=== PATIENT | male | born 1935 | race Caucasian/White ===

== ENCOUNTER 2018-12-18 18:25 | Emergency (ER) | payer BC ==
[2018-12-18 18:29] VITALS: TEMP 97.9; BMI 27.3
--- NOTE | 2018-12-18 18:29 | PDOC ---
Rapid Medical Evaluation Chief Complaint: Blood Pressure Problem Time Seen by Provider: 12/18/18 18:26 Medical Evaluation: Allergies Allergy/AdvReac Type Severity Reaction Status Date / Time ciprofloxacin [From Cipro] Allergy Mild Verified 05/31/18 10:24 ciprofloxacin HCl Allergy Mild Verified 05/31/18 10:24 [From Cipro] Sulfa (Sulfonamide Allergy Mild Swelling Verified 05/31/18 10:24 Antibiotics) [Sulfa(Sulfonamide Antibiotics)] 12/18/18 18:26 I have performed a brief in person evaluation at triage on this patient. CC: HTN HPI: Pt is a 83 YO male who has a hx of HTN and he states that his home RN came and took his BP and she stated it was high. 190/90. Pt's family member states that he does not take his BP med daily. Pt denies symptoms at this time. PE: Skin: clear Lungs: clear Heart: RRR MS: Moves all extremities without difficulty Neuro: Alert and oriented Psych: Appropriate affect Pt will proceed to the main ED for further evaluation. Discharge Disposition - Diagnosis Hypertension Qualifiers: Hypertension type: unspecified Qualified Code(s): I10 - Essential (primary) hypertension - Referrals - Patient Instructions - Post Discharge Activity
[2018-12-18 19:14] LABS: BASO % 0.4 % (0-2.0); EOS % 3.6 % (0-4.5); HEMATOCRIT 42.7 % (35.4-49); HEMOGLOBIN 14.4 GM/dL (11.7-16.9); LYMPH % 20.6 % (8-40); MCH 30.7 pg (25.7-33.7); MCHC 33.8 g/dl (32.0-35.9); MEAN CELL VOLUME 90.8 fl (80-96); MEAN PLT VOLUME 7.8 fl (7.5-11.1); MONO % 7.2 % (3.8-10.2); NEUT % 68.2 % (42.8-82.8); PLATELET COUNT 216 K/MM3 (134-434); RDW 13.5 % (11.9-15.9); WHITE BLOOD COUNT 8.7 K/mm3 (4.0-10.0)
[2018-12-18] MEDS ORDERED: CHLORTHALIDONE 25 MG TABLET PO ONE (19:27)
[2018-12-18] MEDS ORDERED: amLODIPine BESYLATE 5 MG TABLET (FP) PO ONE (19:28)
--- NOTE | 2018-12-18 19:51 | PDOC ---
History of Present Illness - General Chief Complaint: Blood Pressure Problem Stated Complaint: HYPERTENSION Time Seen by Provider: 12/18/18 18:26 History Source: Patient, Family Exam Limitations: No Limitations - History of Present Illness Initial Comments: 12/18/18 19:45 83M with PMH of HTN and "spinal cancer", currently paraplegic from the waist down, who presents to the ED after visiting nurse noted that he had elevated BP. Pt denies any acute complaints including CP, SOB, fever, chills, nausea, vomiting, vision changes. Past History - Past Medical History Allergies/Adverse Reactions: Allergies Allergy/AdvReac Type Severity Reaction Status Date / Time ciprofloxacin [From Cipro] Allergy Mild Verified 12/18/18 18:26 ciprofloxacin HCl Allergy Mild Verified 12/18/18 18:26 [From Cipro] Sulfa (Sulfonamide Allergy Mild Swelling Verified 12/18/18 18:26 Antibiotics) [Sulfa(Sulfonamide Antibiotics)] Home Medications: Ambulatory Orders Glkph-Mygfkll-Ainqminz Tablet 1 tab PO DAILY 10/26/15 Amlodipine Besylate [Norvasc -] 0.5 mg PO DAILY 05/31/18 Aspirin [ASA -] 1 tab PO DAILY 05/31/18 Fluocinonide 0.05% Cream [Lidex 0.05% Cream -] 1 tube TP DAILY 05/31/18 Anemia: No Asthma: No Cancer: No Cardiac Disorders: No CVA: No COPD: No CHF: No Dementia: No Diabetes: No GI Disorders: No Disorders: No HTN: Yes Hypercholesterolemia: No Liver Disease: No Seizures: No Thyroid Disease: No - Surgical History Neurologic Surgery: Yes (spinal tumor removed) Orthopedic Surgery: (parapalegic) - Immunization History Immunization Up to Date: No - Suicide/Smoking/Psychosocial Hx Smoking Status: Yes Smoking History: Never smoked Have you smoked in the past 12 months: No Number of Cigarettes Smoked Daily: 5 If you are a former smoker, when did you quit?: 50 yrs ago Hx Alcohol Use: No Drug/Substance Use Hx: No Substance Use Type: None Hx Substance Use Treatment: No Review of Systems - Review of Systems Able to Perform ROS?: Yes Comments:: 12/18/18 19:50 GENERAL/CONSTITUTIONAL: No fever or chills. No weakness. HEAD, EYES, EARS, NOSE AND THROAT: No change in vision. No ear pain or discharge. No sore throat. CARDIOVASCULAR: No chest pain, palpitations, or lightheadedness. RESPIRATORY: No cough, wheezing, shortness of breath, or hemoptysis. GASTROINTESTINAL: No nausea, vomiting, diarrhea, constipation, or abdominal pain. GENITOURINARY: No dysuria, frequency, hematuria, or change in urination. MUSCULOSKELETAL: No joint or muscle swelling or pain. No neck or back pain. SKIN: + for decubitus ulcer and ulcers on R foot. NEUROLOGIC: No headache, numbness, tingling, focal weakness, loss of consciousness, or change in strength/sensation. Is the patient limited Hebrew proficient: No *Physical Exam - Vital Signs Last Vital Signs Temp Pulse Resp BP Pulse Ox 97.9 F 86 18 191/79 H 98 12/18/18 18:27 12/18/18 18:27 12/18/18 18:27 12/18/18 18:27 12/18/18 18:27 - Physical Exam Comments: 12/18/18 19:50 GENERAL: Well developed, well nourished. Awake and alert. No acute distress. HEENT: Normocephalic, atraumatic. Hearing grossly normal. Moist mucous membranes. PERRLA, EOMI. No conjunctival pallor. Sclera are non-icteric. NECK: Supple. Full ROM. No JVD. CARDIOVASCULAR: Regular rate and rhythm. No murmurs, rubs, or gallops. PULMONARY: No evidence of respiratory distress. Lungs clear to auscultation bilaterally. No wheezing, rales or rhonchi. ABDOMINAL: Soft. Non-tender. Protuberant. No rebound or guarding. MUSCULOSKELETAL: Normal range of motion at all joints. No bony deformities or tenderness. EXTREMITIES: No cyanosis. No clubbing. No edema. No calf tenderness or swelling. SKIN: 2 ulcers on R foot. Large decubitus ulcer stage 2. Otherwise, warm and dry. Normal capillary refill. No rashes. No jaundice. NEUROLOGICAL: Alert, awake, appropriate. Cranial nerves 2-12 grossly intact. Normal speech. Wheelchair bound. PSYCHIATRIC: Cooperative. Good eye contact. Appropriate mood and affect. ED Treatment Course - LABORATORY CBC & Chemistry Diagram: 12/18/18 18:38 12/18/18 18:38 - ADDITIONAL ORDERS Additional order review: 12/18/18 18:38 RBC 4.70 MCV 90.8 MCHC 33.8 RDW 13.5 MPV 7.8 Neutrophils % 68.2 D Lymphocytes % 20.6 D Monocytes % 7.2 D Eosinophils % 3.6 D Basophils % 0.4 Medical Decision Making - Medical Decision Making 12/18/18 19:51 83M with a PMH of HTN sent by visiting nurse for elevated BP. He only took 5 mg (supposed to take 10mg) and did not take his 25mg chlorthalidone. Will give meds and monitor. 12/18/18 20:28 Labs WNL. Repeat BP is 155/76. Pt did not receive chlorthalidone. Will cancel chlorthalidone because pt's BP has corrected. *DC/Admit/Observation/Transfer Diagnosis at time of Disposition: Hypertension Qualifiers: Hypertension type: unspecified Qualified Code(s): I10 - Essential (primary) hypertension - Discharge Dispostion Condition at time of disposition: Good Decision to Admit order: No - Referrals Referrals: Dalton Landon MD [Primary Care Provider] - - Patient Instructions Printed Discharge Instructions: DI for High Blood Pressure Additional Instructions: Your ER visit is not complete until your follow up with your primary care physician. Please follow up with your primary care physician in 1-2 days. Please return to the ER if you have any signs or symptoms of chest pain, shortness of breath, uncontrollable fever, chills, nausea, vomiting, numbness, tingling, or weakness in any part of your body, changes in vision, or slurred speech. Please take your medications as prescribed. Please return to the ER if symptoms persist, worsen, or new symptoms arise. - Post Discharge Activity
[2018-12-18 19:55] LABS: ALBUMIN 3.8 g/dl (3.4-5.0); ALK PHOS 110 U/L (45-117); ANION GAP 7 MMOL/L (8-16); BILIRUBIN,TOTAL 0.4 mg/dL (0.2-1); BLOOD UREA NITROGEN 18 mg/dL (7-18); CALCIUM 9.5 mg/dL (8.5-10.1); CHLORIDE 105 mmol/L (98-107); CO2 30 mmol/L (21-32); CREATININE 0.9 mg/dL (0.55-1.3); GLUCOSE,RANDOM 85 mg/dL (74-106); SGOT/AST 25 U/L (15-37); SGPT/ALT 21 U/L (13-61); SODIUM 141 mmol/L (136-145); TOT PROT 7.9 g/dl (6.4-8.2)
[2018-12-18] MEDS ORDERED: amLODIPine BESYLATE 5 MG TABLET (FP) ONE (20:03)
[2018-12-18 20:29] VITALS: BP 155/76; PULSE 88
--- NOTE | 2018-12-18 20:49 | PDOC ---
Documentation entered by Milagros Bright SCRIBE, acting as scribe for Yolanda Layne DO. Yolanda Layne DO: This documentation has been prepared by the Deangelo gongora Daisy, SCRIBE, under my direction and personally reviewed by me in its entirety. I confirm that the documentation accurately reflects all work , treatment, procedures, and medical decision making performed by me. 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 Patient is currently asymptomatic here in the ER. Allergies: cipro, sulfa Social Hx: Denies toxic habits Surgeries: None reported. PCP: Dr. Landon - Physicial Exam PE: 12/18/18 20:25 Agree with resident's exam - Medical Decision Making 12/18/18 20:47 83-year-old male sent in for evaluation after blood pressure was found to be high at home on routine check Patient admits to taking his medications and correctly Blood pressure decreased in the emergency department after amlodipine Patient remains asymptomatic Labs were not concerning Plan for DC home, family is at the bedside I will provide transportation 12/18/18 20:48
--- NOTE | 2018-12-19 10:32 | EKG ---
Test Reason : Blood Pressure : / mmHG Vent. Rate : 089 BPM Atrial Rate : 089 BPM P-R Int : 158 ms QRS Dur : 074 ms QT Int : 374 ms P-R-T Axes : 009 056 038 degrees QTc Int : 455 ms POOR DATA QUALITY, INTERPRETATION MAY BE ADVERSELY AFFECTED NORMAL SINUS RHYTHM NORMAL ECG WHEN COMPARED WITH ECG OF 20-OCT-2012 04:01, PREMATURE SUPRAVENTRICULAR COMPLEXES ARE NO LONGER PRESENT Confirmed by NANCY ALCALA, RILEY ([id number]) on 12/19/2018 10:32:43 AM Referred By: Confirmed By:RILEY CRUZ MD
== END 2018-12-18 20:56 | disposition home or self-care (01) ==
LOC: JER 18:25
DX: I10 Essential (primary) hypertension (principal); G82.20 Paraplegia, unspecified; Z85.830 Personal history of malignant neoplasm of bone
CPT/HCPCS: 36415; 80053; 84484; 85025; 93005; 93010; 99284-25

== ENCOUNTER 2019-01-03 17:22 | Inpatient (IN) | payer BC ==
--- NOTE | 2019-01-03 17:49 | PDOC ---
Rapid Medical Evaluation Medical Evaluation: Allergies Allergy/AdvReac Type Severity Reaction Status Date / Time ciprofloxacin [From Cipro] Allergy Mild Verified 12/18/18 18:26 ciprofloxacin HCl Allergy Mild Verified 12/18/18 18:26 [From Cipro] Sulfa (Sulfonamide Allergy Mild Swelling Verified 12/18/18 18:26 Antibiotics) [Sulfa(Sulfonamide Antibiotics)] I have performed a brief in-person evaluation of this patient. 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 01/03/19 17:49 Discharge Disposition - Discharge Dispostion Condition at time of disposition: Stable - Referrals - Patient Instructions - Post Discharge Activity
[2019-01-03] MEDS ORDERED: ACETAMINOPHEN 325 MG TABLET (FP) PO ONE (17:56)
[2019-01-03] MEDS ORDERED: ACETAMINOPHEN 325 MG TABLET (FP) ONE (18:29)
[2019-01-03] MEDS ORDERED: IBUPROFEN 600 MG TABLET (FP) PO ONE ×2 (18:31→18:33)
[2019-01-03 18:38] LABS: BASO % 0.2 % (0-2.0); HEMATOCRIT 38.1 % (35.4-49); HEMOGLOBIN 12.5 GM/dL (11.7-16.9); LYMPH % 6.2 % (8-40); MCH 29.6 pg (25.7-33.7); MCHC 32.8 g/dl (32.0-35.9); MEAN CELL VOLUME 90.3 fl (80-96); MEAN PLT VOLUME 8.8 fl (7.5-11.1); NEUT % 90.6 % (42.8-82.8); PLATELET COUNT 230 K/MM3 (134-434); RBC 4.21 M/mm3 (4.00-5.60); RDW 13.5 % (11.9-15.9); WHITE BLOOD COUNT 21.1 K/mm3 (4.0-10.0)
[2019-01-03 19:21] LABS: ALBUMIN 2.6 g/dl (3.4-5.0); BILIRUBIN,TOTAL 0.8 mg/dL (0.2-1); CALCIUM 8.9 mg/dL (8.5-10.1); CREATININE 1.6 mg/dL (0.55-1.3); POTASSIUM 3.4 mmol/L (3.5-5.1); TOT PROT 6.8 g/dl (6.4-8.2)
--- NOTE | 2019-01-03 19:28 | PDOC ---
History of Present Illness - General Chief Complaint: Tremors Stated Complaint: UTI Time Seen by Provider: 01/03/19 17:50 History Source: Patient Exam Limitations: No Limitations - History of Present Illness Initial Comments: 01/03/19 20:02 83 year old male with PMH HTN, spinal cancer, paraplegia, wheelchair bound, trauma to bilateral femurs, urinary incontinence (self caths) presented to ED for left testicular swelling associated with fever and chills x3 days. Pt was seen by his PCP Monday, testing was performed, but patient was not prescribed any medication. Pt called his doctor today and was told to go to the ED if symptoms were worsening. Pt denied nausea, vomiting, abdominal pain. Allergies: Cipro, Sulfa Past History - Past Medical History Allergies/Adverse Reactions: Allergies Allergy/AdvReac Type Severity Reaction Status Date / Time ciprofloxacin [From Cipro] Allergy Mild Verified 01/03/19 20:16 ciprofloxacin HCl Allergy Mild Verified 01/03/19 20:16 [From Cipro] Sulfa (Sulfonamide Allergy Mild Swelling Verified 01/03/19 20:16 Antibiotics) [Sulfa(Sulfonamide Antibiotics)] Home Medications: Ambulatory Orders Thgto-Nqcwvuj-Qqltyqqg Tablet 1 tab PO DAILY 10/26/15 Amlodipine Besylate [Norvasc -] 10 mg PO DAILY 05/31/18 Aspirin [ASA -] 1 tab PO DAILY 05/31/18 Fluocinonide 0.05% Cream [Lidex 0.05% Cream -] 1 tube TP DAILY 05/31/18 Chlorthalidone 25 mg PO DAILY 12/18/18 Anemia: No Asthma: No Cancer: No Cardiac Disorders: No CVA: No COPD: No CHF: No Dementia: No Diabetes: No GI Disorders: No Disorders: No HTN: Yes Hypercholesterolemia: No Liver Disease: No Seizures: No Thyroid Disease: No - Surgical History Neurologic Surgery: Yes (spinal tumor removed) Orthopedic Surgery: (parapalegic) - Immunization History Immunization Up to Date: No - Suicide/Smoking/Psychosocial Hx Smoking Status: Yes Smoking History: Never smoked Have you smoked in the past 12 months: No Number of Cigarettes Smoked Daily: 5 If you are a former smoker, when did you quit?: 50 yrs ago Information on smoking cessation initiated: No Hx Alcohol Use: No Drug/Substance Use Hx: No Substance Use Type: None Hx Substance Use Treatment: No Review of Systems - Review of Systems Able to Perform ROS?: Yes Comments:: 01/03/19 20:03 General: admitted to fever, chills, generalized weakness. HEENT: denied sore throat, rhinorrhea, ear pain. Heart: denied chest pain, palpitations, syncope, diaphoresis. Respiratory: denied shortness of breath, cough, sputum production, hemoptysis. Abdomen: denied abdominal pain, nausea, vomiting, diarrhea, constipation, blood in stool. : admitted to testicular swelling. denied dysuria, increased urinary frequency , hematuria, urinary incontinence, flank pain. Back: denied back pain. Musculoskeletal: denied joint pain, muscle pain, joint swelling. Neurological: denied headache, dizziness, numbness, tingling, weakness. Skin: denied rash, laceration, abrasion. *Physical Exam - Vital Signs Last Vital Signs Temp Pulse Resp BP Pulse Ox 101.0 F H 104 H 16 141/60 96 01/03/19 17:52 01/03/19 17:52 01/03/19 17:52 01/03/19 17:52 01/03/19 17:52 - Physical Exam Comments: 01/03/19 20:04 Constitutional: Well-nourished, Well-developed, appearing stated age. HEENT: head is normocephalic, atraumatic. EOMI. PERRLA. Neck: supple. Full ROM. Heart: regular rhythm. no murmurs, rubs or gallops. Lungs: clear to auscultation bilaterally. no crackles, rhonchi or wheezing. no stridor. Abdomen: soft, flat. tenderness to suprapubic area, LLQ, RLQ, worst in the suprapubic area. normal bowel sounds. no rebound, guarding, masses. : scrotal edema. left testicular tenderness. no gangrene. Sacral: skin breakdown with stool contamination. Extremities: peripheral pulses intact. no lower extremity edema. lower extremity wasting bilaterally. Neurological: CN 2-12 grossly intact. moves all four extremities. Psych: awake, alert, oriented x3. follows commands. answers questions appropriately. ED Treatment Course - LABORATORY CBC & Chemistry Diagram: 01/04/19 05:30 01/04/19 05:30 - ADDITIONAL ORDERS Additional order review: Laboratory Results 01/03/19 18:18 Sodium 133 L Potassium 3.4 L Chloride 98 Carbon Dioxide 22 Anion Gap 13 BUN 31 H Creatinine 1.6 H Est GFR (CKD-EPI)AfAm 44.86 Est GFR (CKD-EPI)NonAf 38.71 Random Glucose 127 H Calcium 8.9 Total Bilirubin 0.8 AST 53 H ALT 53 Alkaline Phosphatase 120 H Total Protein 6.8 Albumin 2.6 L 01/03/19 18:18 RBC 4.21 MCV 90.3 MCHC 32.8 RDW 13.5 MPV 8.8 D Neutrophils % 90.6 H Lymphocytes % 6.2 L D Monocytes % 3.0 L Eosinophils % 0.0 D Basophils % 0.2 - Medications Given in the ED: ED Medications Discontinued Medications Generic Name Dose Route Start Last Admin Trade Name Freq PRN Reason Stop Dose Admin Acetaminophen 975 mg 01/03/19 17:56 01/03/19 18:32 Tylenol - PO 01/03/19 17:57 Not Given ONCE ONE Ibuprofen 600 mg 01/03/19 18:31 01/03/19 18:34 Motrin - PO 01/03/19 18:32 600 mg ONCE ONE Administration Medical Decision Making - Medical Decision Making 01/03/19 19:28 83 year old male with above PMH presented to ED for testicular swelling associated with fever/chills. Initial Vital Signs Temp Pulse Resp BP Pulse Ox 101.0 F H 104 H 16 141/60 96 01/03/19 17:52 01/03/19 17:52 01/03/19 17:52 01/03/19 17:52 01/03/19 17:52 Febrile. Tachycardic. No tachypnea. Mild hypertension. No hypoxia on room air. EKG performed at 2125: rate 76, regular rhythm, normal axis, normal intervals, nonspecific ST changes. CBC WBC 21.1 K/mm3 (4.0-10.0) H 01/03/19 18:18 RBC 4.21 M/mm3 (4.00-5.60) 01/03/19 18:18 Hgb 12.5 GM/dL (11.7-16.9) 01/03/19 18:18 Hct 38.1 % (35.4-49) 01/03/19 18:18 MCV 90.3 fl (80-96) 01/03/19 18:18 MCH 29.6 pg (25.7-33.7) 01/03/19 18:18 MCHC 32.8 g/dl (32.0-35.9) 01/03/19 18:18 RDW 13.5 % (11.9-15.9) 01/03/19 18:18 Plt Count 230 K/MM3 (134-434) 01/03/19 18:18 MPV 8.8 fl (7.5-11.1) D 01/03/19 18:18 Absolute Neuts (auto) 19.1 K/mm3 (1.5-8.0) H 01/03/19 18:18 Neutrophils % 90.6 % (42.8-82.8) H 01/03/19 18:18 Lymphocytes % 6.2 % (8-40) L D 01/03/19 18:18 Monocytes % 3.0 % (3.8-10.2) L 01/03/19 18:18 Eosinophils % 0.0 % (0-4.5) D 01/03/19 18:18 Basophils % 0.2 % (0-2.0) 01/03/19 18:18 Nucleated RBC % 0 % (0-0) 01/03/19 18:18 Leukocytosis with left shift. No anemia. CMP Sodium 133 mmol/L (136-145) L 01/03/19 18:18 Potassium 3.4 mmol/L (3.5-5.1) L 01/03/19 18:18 Chloride 98 mmol/L (98-107) 01/03/19 18:18 Carbon Dioxide 22 mmol/L (21-32) 01/03/19 18:18 Anion Gap 13 MMOL/L (8-16) 01/03/19 18:18 BUN 31 mg/dL (7-18) H 01/03/19 18:18 Creatinine 1.6 mg/dL (0.55-1.3) H 01/03/19 18:18 Est GFR (CKD-EPI)AfAm 44.86 01/03/19 18:18 Est GFR (CKD-EPI)NonAf 38.71 01/03/19 18:18 Random Glucose 127 mg/dL (74-106) H 01/03/19 18:18 Calcium 8.9 mg/dL (8.5-10.1) 01/03/19 18:18 Total Bilirubin 0.8 mg/dL (0.2-1) 01/03/19 18:18 AST 53 U/L (15-37) H 01/03/19 18:18 ALT 53 U/L (13-61) 01/03/19 18:18 Alkaline Phosphatase 120 U/L (45-117) H 01/03/19 18:18 Total Protein 6.8 g/dl (6.4-8.2) 01/03/19 18:18 Albumin 2.6 g/dl (3.4-5.0) L 01/03/19 18:18 Mild hyponatremia. Mild hypokalemia. RENNY. Medications ordered: normal saline bolus 1000 cc 01/03/19 21:21 Pt is unable to be catheterized by RN. Urology paged. 01/03/19 21:[address] Lou, who stated he will come to the ED to catheterize the patient. Pending his arrival. 01/03/19 21:36 RN now able to pass bernal. Urology paged. 01/03/19 22:02 Urine Test Results Urine Color Dk yellow 01/03/19 21:30 Urine Appearance Cloudy 01/03/19 21:30 Urine pH 5.0 (5.0-8.0) 01/03/19 21:30 Ur Specific [place] 1.018 (1.010-1.035) 01/03/19 21:30 Urine Protein 1+ (NEGATIVE) H 01/03/19 21:30 Urine Glucose (UA) Negative (NEGATIVE) 01/03/19 21:30 Urine Ketones Negative (NEGATIVE) 01/03/19 21:30 Urine Blood 2+ (NEGATIVE) H 01/03/19 21:30 Urine Nitrite Negative (NEGATIVE) 01/03/19 21:30 Urine Bilirubin Negative (NEGATIVE) 01/03/19 21:30 Ur Leukocyte Esterase 3+ (NEGATIVE) H 01/03/19 21:30 WBC 30+ Pt has UTI. Medications ordered: Vancomycin and Zosyn (renal dosing) -Pt has sacral skin break down with stool contamination -Covering for both UTI and fecal contaminated skin wound Pt to be admitted for UTI with SIRS. 01/03/19 22:19 Pt to be admitted to Dr. Herr service. *DC/Admit/Observation/Transfer Diagnosis at time of Disposition: Urinary tract infection, Scrotal edema, SIRS (systemic inflammatory response syndrome) - Discharge Dispostion Disposition: TRANSFER ACUTE CARE/OTHER HOSP Condition at time of disposition: Stable Decision to Admit order: Yes - Referrals - Patient Instructions - Post Discharge Activity
[2019-01-03] MEDS ORDERED: SODIUM CHLORIDE 1,000 ML IV STA (19:30)
[2019-01-03 20:12] LABS: PLATELET ESTIMATE ADEQUATE
--- NOTE | 2019-01-03 21:08 | PDOC ---
Documentation entered by Milagros Bright SCRIBE, acting as scribe for Demetrius Luis MD. Demetrius Luis MD: This documentation has been prepared by the Deangelo gongora Daisy, SCRIBE, under my direction and personally reviewed by me in its entirety. I confirm that the documentation accurately reflects all work, treatment, procedures, and medical decision making performed by me. Attending Attestation - Resident Resident Name: Sari Craft - ED Attending Attestation I have performed the following: I have examined & evaluated the patient, The case was reviewed & discussed with the resident, I agree w/resident's findings & plan - HPI HPI: 01/03/19 20:29 83 year old male with PMH HTN, spinal cancer, paraplegia who presents to the ED for left testicular swelling and associated fever/ chills for the past 3 days. Patient states he saw his PCP 2 days ago for urinary symptoms and reports that he usually "gets amoxicillin for his UTIs," but was not started on any medications. He decided to come to the ER for further testing. Denies any nausea, vomiting, abdominal pain, cp, or sob. Allergies: ciprofloxacin, sulfa - Physicial Exam PE: 01/04/19 07:25 Scrotum swollen, edemetous, erythematous, skin intact, no drainage No perineal crepitus Stage 3 sacral decub - Medical Decision Making 01/04/19 07:26 83M with above medical hx here with scrotal swelling and px consider cellulitis, clinically inconsistent with norman's on initial exam f/u labs, imaging, repeat vital signs ivf, will cover broadly given risk of progression admit for continued management
[2019-01-03 21:47] LABS: EPI CELLS 5.3 /HPF (0-5/HPF); URINE APPEARANCE CLOUDY; URINE BACTERIA 3.9 /hpf (NEGATIVE); URINE BILIRUBIN NEGATIVE (NEGATIVE); URINE CASTS 24 /lpf (0-8); URINE COLOR DK YELLOW; URINE GLUCOSE (UA) NEGATIVE (NEGATIVE); URINE KETONE NEGATIVE (NEGATIVE); URINE LEUK ESTERASE 3+ (NEGATIVE); URINE NITRITE NEGATIVE (NEGATIVE); URINE PROTEIN 1+ (NEGATIVE); URINE WBC 38 /hpf (0-5)
[2019-01-03] MEDS ORDERED: CEFTRIAXONE 1 GM in DEXTROSE 5%-WATER - 100 ML IVPB ONE (22:18)
[2019-01-03] MEDS ORDERED: CEFTRIAXONE 1 GM/50 ML BAG ONE (22:23)
[2019-01-03] MEDS ORDERED: PIPERACILLIN/TAZOB 4.5 GM 4.5 GM in DEXTROSE 5%-WATER 100 ML IVPB ONE (22:25)
[2019-01-03] MEDS ORDERED: VANCOMYCIN 1,000 MG in DEXTROSE 5%-WATER - 250 ML IVPB ONE (22:25)
[2019-01-03] MEDS ORDERED: PIPERACILLIN/TAZOB 2.25 GM 2.25 GM/50 ML BAG IVPB ONE (22:27)
[2019-01-03] MEDS ORDERED: PIPERACILLIN/TAZOB 2.25 GM 2.25 GM in DEXTROSE 5%-WATER - 50 ML IVPB ONE (22:27)
[2019-01-03 22:46] LABS: URINE RBC 10.2 /hpf (0-4); YEAST NONE SEEN (NEGATIVE)
--- NOTE | 2019-01-03 22:46 | PN ---
Teaching Attending Note Name of Resident: Anastacia Fleming ATTENDING PHYSICIAN STATEMENT I saw and evaluated the patient. I reviewed the resident's note and discussed the case with the resident. I agree with the resident's findings and plan as documented. SUBJECTIVE: Seen and examined; please refer to resident note for further historical information. Briefly, this is a 83 y/o male with a PMH as documented presenting to the ER with a CC of fever and chills for 3 days and 1 day testicular pain and swelling; he is found to have an RENNY, elevated WBC with bands, and a positive UA. He straight caths several times a day. In the ER he was treated presumptively for UTI. 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 Needed subspecialty services were not available so patient was brought to the ICU and planned for transfer to [facility]. He has been accepted by Dr. Pena and we placed a triple lumen CVC in his R-IJ (placement confirmed). Broadened abx, started NE, and giving high- rate fluids as now in septic shock. 10 sys ROS done and negative aside from HPI PMH, PSH, FH, SH reviewed Home Medications Medication Instructions Recorded Ekuod-Lgdvnvl-Spvphckv Tablet 1 tab PO DAILY 10/26/15 Amlodipine Besylate [Norvasc -] 10 mg PO DAILY 05/31/18 Aspirin [ASA -] 1 tab PO DAILY 05/31/18 Fluocinonide 0.05% Cream [Lidex 1 tube TP DAILY 05/31/18 0.05% Cream -] Chlorthalidone 25 mg PO DAILY 12/18/18 OBJECTIVE: VS, labs, imaging reviewed Mild distress, AAO, resting comfortably in WC NC AT EOMI PERRLA Swollen testicles somewhat painful to palpation NT ND +BS RRR s1/2 no mgr CN2-12 wnl, no fnd Normal mood, appropriate affect EKG reviewed CT prelim report with norman's ASSESSMENT AND PLAN: 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 NE to maintain MAP 65. Broad spectrum abx STAT transfer Very guarded prognosis
[2019-01-03] MEDS ORDERED: ACETAMINOPHEN 325 MG TABLET (FP) PO PRN (22:55)
[2019-01-03] MEDS ORDERED: LACTATED RINGERS SOLUTION 1,000 ML IV SCH (23:00)
--- NOTE | 2019-01-03 23:10 | HP ---
CHIEF COMPLAINT: fever, chills, testicular swelling PCP: Dr. Landon HISTORY OF PRESENT ILLNESS: Patient is a 83 y/o male with a history of HTN, spinal tumor, parapelegia, femur fractures, and urinary incontinence who presents for fevers, chills and testicular swelling. He states he went to his PCP a few days ago who did labs but did not find any abnormalities and told him to follow up with the ED. He reports the testicular pain and swelling began yesterday and has been worsening. He has not had this in the past. He typically straight cath's himself four times a day. His last UTI was 3 months ago and typically has them 3 -4 times a year. His PCP prescribes him with Amoxicillin for the UTI. Patient reports he sometimes has bed ulcers as well, is unsure if he has one right now. Patient currently reports his fever is better and the only pain is in his testicles. Denies smoking and drinking. 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 ( used to walk with a cane until b/l femur fracture without surgical fixture and now wheel chair bound) Social History: Smoking: denies Alcohol: denies Drugs: Family History: Allergies ciprofloxacin HCl [From Cipro] Allergy (Mild, Verified 01/03/19 20:16)- rash and itching Sulfa (Sulfonamide Antibiotics) [Sulfa(Sulfonamide Antibiotics)] Allergy (Mild, Verified 01/03/19 20:16) -rash and itching Swelling HOME MEDICATIONS: Home Medications Medication Instructions Recorded Kbary-Npnkzmz-[place] Tablet 1 tab PO DAILY 10/26/15 Amlodipine Besylate [Norvasc -] 0.5 mg PO DAILY 05/31/18 Aspirin [ASA -] 1 tab PO DAILY 05/31/18 Fluocinonide 0.05% Cream [Lidex 1 tube TP DAILY 05/31/18 0.05% Cream -] Chlorthalidone 25 mg PO DAILY 12/18/18 REVIEW OF SYSTEMS positive: fever, chills, testicular pain and swelling denies: chest pain, nausea, vomiting, shortness of breath headache, dizziness PHYSICAL EXAMINATION Vital Signs Temperature 97.6 F 01/03/19 21:59 Pulse Rate 74 01/03/19 21:59 Respiratory Rate 18 01/03/19 21:59 Blood Pressure 141/60 01/03/19 17:52 O2 Sat by Pulse Oximetry (%) 95 01/03/19 21:59 GENERAL: Awake, alert, and fully oriented, in no acute distress. HEAD: Normal with no signs of trauma. EYES: Pupils equal, round and reactive to light, extraocular movements intact EARS, NOSE, THROAT: Moist mucous membranes. NECK: Normal range of motion, supple without lymphadenopathy, JVD, or masses. LUNGS: Breath sounds equal, clear to auscultation bilaterally. No wheezes, and no crackles. No accessory muscle use. HEART: Regular rate and rhythm, normal S1 and S2 without murmur, rub or gallop. ABDOMEN: Soft, nontender, not distended, normoactive bowel sounds, no guarding, no rebound, no masses. : large amount of testicular swelling, with slight dependent edema, no ulcers or skin breakdown, some feces found on bottom, pain with palpation and movement , catheter in place MUSCULOSKELETAL: Normal range of motion in upper extremity, cannot move lower extremity LOWER EXTREMITIES: no pitting edema PSYCHIATRIC: Cooperative. Good eye contact. Appropriate mood and affect. SKIN: large 5 x5 cm zully 1 sacral ulcer with feces, heled ulcer on left leg CBCD WBC 21.1 K/mm3 (4.0-10.0) H 01/03/19 18:18 RBC 4.21 M/mm3 (4.00-5.60) 01/03/19 18:18 Hgb 12.5 GM/dL (11.7-16.9) 01/03/19 18:18 Hct 38.1 % (35.4-49) 01/03/19 18:18 MCV 90.3 fl (80-96) 01/03/19 18:18 MCHC 32.8 g/dl (32.0-35.9) 01/03/19 18:18 RDW 13.5 % (11.9-15.9) 01/03/19 18:18 Plt Count 230 K/MM3 (134-434) 01/03/19 18:18 MPV 8.8 fl (7.5-11.1) D 01/03/19 18:18 CMP Sodium 133 mmol/L (136-145) L 01/03/19 18:18 Potassium 3.4 mmol/L (3.5-5.1) L 01/03/19 18:18 Chloride 98 mmol/L (98-107) 01/03/19 18:18 Carbon Dioxide 22 mmol/L (21-32) 01/03/19 18:18 Anion Gap 13 MMOL/L (8-16) 01/03/19 18:18 BUN 31 mg/dL (7-18) H 01/03/19 18:18 Creatinine 1.6 mg/dL (0.55-1.3) H 01/03/19 18:18 Calcium 8.9 mg/dL (8.5-10.1) 01/03/19 18:18 Total Bilirubin 0.8 mg/dL (0.2-1) 01/03/19 18:18 AST 53 U/L (15-37) H 01/03/19 18:18 ALT 53 U/L (13-61) 01/03/19 18:18 Alkaline Phosphatase 120 U/L (45-117) H 01/03/19 18:18 Total Protein 6.8 g/dl (6.4-8.2) 01/03/19 18:18 Albumin 2.6 g/dl (3.4-5.0) L 01/03/19 18:18 ASSESSMENT/PLAN: Patient is a 83 y/o male with a history of HTN, spinal tumor, parapelegia, femur fractures, and urinary incontinence who presents for fevers, chills and testicular swelling. #sepsis 2/2 to UTI - febrile 101 , given acetaminophen and motrin - WBC 21.1 - Vanc/ Zosyn given in ED, will continue - Zosyn 3.375 q6h - f/u Bobde consult - continue LR @ 100 #testicular swelling, likely 2/2 to infection - US: significant diffuse swelling/edema of scrotal sac, symmetric vascular flow, R testicular simple cyst - pain on palpation - f/u abd CT/pelvis, r/o norman's #james likely 2/2 to sepsis/prerenal - trend cr - continue fluids - f/u urine cr and urine lytes #sacral ulcer - keep clean and dry - consider wound care consult #HTN - hold po meds in the setting of sepsis FEN - LR @ 100 - low sodium diet Dispo: monitor on med-surg UPDATE: 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 Placed central line and patient will be transfered to [facility] for urologic emergent surgery Patient placed on levophed for BP control given 3L NS, placed on 125 maintenance fluids abx given Clindamycin, Meropenem, Zosyn, Vanc Visit type - Emergency Visit Emergency Visit: Yes ED Registration Date: 01/03/19 Care time: The patient presented to the Emergency Department on the above date and was hospitalized for further evaluation of their emergent condition. - New Patient This patient is new to me today: Yes Date on this admission: 01/07/19 - Critical Care Critical Care patient: Yes Total Critical Care Time (in minutes): 45 Critical Care Statement: The care of this patient involved high complexity decision making to prevent further life threatening deterioration of the patient 's condition and/or to evaluate & treat vital organ system(s) failure or risk of failure.
[2019-01-03] MEDS ORDERED: VANCOMYCIN 1 GRAM (PRE-DOCKED) 1,000 MG/250 ML BAG IVPB ONE (23:42)
[2019-01-04] MEDS ORDERED: SODIUM CHLORIDE 500 ML IV STA (01:44)
[2019-01-04 02:30] VITALS: BMI 27.8
[2019-01-04] MEDS ORDERED: SODIUM CHLORIDE 1,000 ML IV STA (02:45)
--- NOTE | 2019-01-04 02:55 | CONSULT ---
Consultation: REQUESTING PROVIDER:DR Fleming resident CONSULT REQUEST: We have been asked to medically evaluate this patient for ( sepsis ). HISTORY OF PRESENT ILLNESS: Patient is a 83 y/o male with a history of HTN, spinal tumor, parapelegia, femur fractures, and urinary incontinence who presents for fevers, chills and testicular swelling. He states he went to his PCP a few days ago who did labs but did not find any abnormalities and told him to follow up with the ED. He reports the testicular pain and swelling began yesterday and has been worsening. He has not had this in the past. He typically straight cath's himself four times a day. His last UTI was 3 months ago and typically has them 3 -4 times a year. His PCP prescribes him with Amoxicillin for the UTI. Patient reports he sometimes has bed ulcers as well, is unsure if he has one right now. Patient currently reports his fever is better and the only pain is in his testicles. Denies smoking and drinking. denies any headache . light headedness, N/V/D, reports constipation with Last BM 3 days ago , denies any leg swelling , sob , heart racing , chest pain , abdominal pain denies any change in urine color or blood in urine (hematuria ) REVIEW OF SYSTEMS: CONSTITUTIONAL: Absent: fever, chills, diaphoresis, generalized weakness, malaise, loss of appetite, weight change HEENT: Absent: rhinorrhea, nasal congestion, throat pain, throat swelling, difficulty swallowing, mouth swelling, ear pain, eye pain, visual changes CARDIOVASCULAR: Absent: chest pain, syncope, palpitations, irregular heart rate, lightheadedness , peripheral edema RESPIRATORY: Absent: cough, shortness of breath, dyspnea with exertion, orthopnea, wheezing, stridor, hemoptysis GASTROINTESTINAL: Absent: abdominal pain, abdominal distension, nausea, vomiting, diarrhea, constipation, melena, hematochezia GENITOURINARY: Absent: dysuria, frequency, urgency, hesitancy, hematuria, flank pain, genital pain MUSCULOSKELETAL: Absent: myalgia, arthralgia, joint swelling, back pain, neck pain SKIN: Absent: rash, itching, pallor HEMATOLOGIC/IMMUNOLOGIC: Absent: easy bleeding, easy bruising, lymphadenopathy, frequent infections ENDOCRINE: Absent: unexplained weight gain, unexplained weight loss, heat intolerance, cold intolerance NEUROLOGIC: Absent: headache, focal weakness or paresthesias, dizziness, unsteady gait, seizure, mental status changes, bladder and bowel incontinence PSYCHIATRIC: Absent: anxiety, depression, suicidal or homicidal ideation, hallucinations. PHYSICAL EXAMINATION Vital Signs - 24 hr 01/03/19 01/03/19 01/04/19 17:52 21:59 01:42 Temperature 101.0 F H 97.6 F 97.3 F L Pulse Rate 104 H 70 Pulse Rate [ 74 Left Radial] Respiratory 16 18 18 Rate Blood Pressure 141/60 85/45 L O2 Sat by Pulse 96 95 Oximetry (%) 01/04/19 01/04/19 01/04/19 01:49 02:18 02:44 Temperature 97.3 F L Pulse Rate 70 66 Pulse Rate [ Left Radial] Respiratory 18 18 Rate Blood Pressure 85/45 L 93/54 L O2 Sat by Pulse 95 Oximetry (%) GENERAL: Awake, alert, and fully oriented, in no acute distress. HEAD: Normal with no signs of trauma. EYES: Pupils equal, round and reactive to light, extraocular movements intact, ENT:. Moist mucous membranes. NECK: supple LUNGS: Breath sounds equal, clear to auscultation bilaterally. No wheezes, and no crackles. No accessory muscle use. HEART: Regular rate and rhythm, normal S1 and S2 without murmur, rub or gallop. ABDOMEN: Soft, nontender, not distended, normoactive bowel sounds, no guarding, LOWER EXTREMITIES: 2+ pulses, warm, well-perfused. No calf tenderness. No peripheral edema. right ankle lateral ulcer coin size , medial big tow ulcer 0.5X0.5 cm NEUROLOGICAL: paraplegia, SHAHID, EOMI, . Normal speech. bed bounded , bernal in place , PSYCHIATRIC: Cooperative. Good eye contact. SKIN: Warm, dry, sacral erythema with ulcer stage 3 , 2x2 cm, scrotum swollen. Laboratory Results - last 24 hr 01/03/19 01/03/19 01/03/19 18:18 18:18 21:30 WBC 21.1 H RBC 4.21 Hgb 12.5 Hct 38.1 MCV 90.3 MCH 29.6 MCHC 32.8 RDW 13.5 Plt Count 230 MPV 8.8 D Absolute Neuts (auto) 19.1 H Neutrophils % 90.6 H Neutrophils % (Manual) 81.0 Band Neutrophils % 10.0 Lymphocytes % 6.2 L D Lymphocytes % (Manual) 3.0 L Monocytes % 3.0 L Monocytes % (Manual) 3 L Eosinophils % 0.0 D Eosinophils % (Manual) 0.0 Basophils % 0.2 Basophils % (Manual) 0.0 Nucleated RBC % 0 Platelet Estimate Adequate Sodium 133 L Potassium 3.4 L Chloride 98 Carbon Dioxide 22 Anion Gap 13 BUN 31 H Creatinine 1.6 H Est GFR (CKD-EPI)AfAm 44.86 Est GFR (CKD-EPI)NonAf 38.71 Random Glucose 127 H Lactic Acid Calcium 8.9 Total Bilirubin 0.8 AST 53 H ALT 53 Alkaline Phosphatase 120 H Total Protein 6.8 Albumin 2.6 L Urine Color Dk yellow Urine Appearance Cloudy Urine pH 5.0 Ur Specific [place] 1.018 Urine Protein 1+ H Urine Glucose (UA) Negative Urine Ketones Negative Urine Blood 2+ H Urine Nitrite Negative Urine Bilirubin Negative Urine Urobilinogen 1.0 Ur Leukocyte Esterase 3+ H Urine WBC (Auto) 38 Urine RBC (Auto) 10.2 Urine Casts (Auto) 24 U Pathogenic Cast Auto None seen U Epithel Cells (Auto) 5.3 U Sm Round Cell (Auto) None seen Urine Bacteria (Auto) 3.9 Urine Yeast (Auto) None seen 01/03/19 21:45 WBC RBC Hgb Hct MCV MCH MCHC RDW Plt Count MPV Absolute Neuts (auto) Neutrophils % Neutrophils % (Manual) Band Neutrophils % Lymphocytes % Lymphocytes % (Manual) Monocytes % Monocytes % (Manual) Eosinophils % Eosinophils % (Manual) Basophils % Basophils % (Manual) Nucleated RBC % Platelet Estimate Sodium Potassium Chloride Carbon Dioxide Anion Gap BUN Creatinine Est GFR (CKD-EPI)AfAm Est GFR (CKD-EPI)NonAf Random Glucose Lactic Acid 1.8 Calcium Total Bilirubin AST ALT Alkaline Phosphatase Total Protein Albumin Urine Color Urine Appearance Urine pH Ur Specific [place] Urine Protein Urine Glucose (UA) Urine Ketones Urine Blood Urine Nitrite Urine Bilirubin Urine Urobilinogen Ur Leukocyte Esterase Urine WBC (Auto) Urine RBC (Auto) Urine Casts (Auto) U Pathogenic Cast Auto U Epithel Cells (Auto) U Sm Round Cell (Auto) Urine Bacteria (Auto) Urine Yeast (Auto) Active Medications Generic Name Dose Route Start Last Admin Trade Name Freq PRN Reason Stop Dose Admin Acetaminophen 650 mg 01/03/19 22:55 Tylenol - PO Q4H PRN PAIN OR FEVER Heparin Sodium (Porcine) 5,000 unit 01/04/19 06:00 Heparin - SQ TID RICARDA Lactated Ringer's 1,000 mls @ 100 mls/hr 01/03/19 23:00 01/03/19 23:53 Lactated Ringers Solution IV 100 mls/hr ASDIR RICARDA Administration Piperacillin Sod/Tazobactam 50 mls @ 100 mls/hr 01/04/19 06:00 Sod 3.375 gm/ Dextrose IVPB Q6H RICARDA Protocol Sodium Chloride 1,000 mls @ 1,000 mls/hr 01/04/19 02:45 Normal Saline - IV 01/04/19 03:44 ASDIR STA CBC, BMP 01/03/19 18:18 01/03/19 18:18 ASSESSMENT/PLAN: 83 year old male with HTN , 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 Thank you for this consultative opportunity. Visit type - Emergency Visit Emergency Visit: Yes ED Registration Date: 01/03/19 Care time: The patient presented to the Emergency Department on the above date and was hospitalized for further evaluation of their emergent condition. - New Patient This patient is new to me today: Yes Date on this admission: 01/03/19 - Critical Care Critical Care patient: Yes Total Critical Care Time (in minutes): 45 Critical Care Statement: The care of this patient involved high complexity decision making to prevent further life threatening deterioration of the patient 's condition and/or to evaluate & treat vital organ system(s) failure or risk of failure.
[2019-01-04] MEDS ORDERED: NOREPINEPHRINE BITARTRATE 4 MG/4 ML ML IV ONE (03:13)
[2019-01-04] MEDS ORDERED: CLINDAMYCIN 900 MG PREMIX IVPB 900 MG/50 ML BAG IVPB SCH (03:15)
[2019-01-04] MEDS ORDERED: VANCOMYCIN HCL 1,250 MG in DEXTROSE 5%-WATER - 250 ML IVPB SCH (03:15)
[2019-01-04] MEDS ORDERED: MEROPENEM 1 GM in DEXTROSE 5%-WATER 100 ML IVPB SCH ×2 (03:15→18:00)
[2019-01-04] MEDS ORDERED: KCL 10 MEQ IVPB 10 MEQ/100 ML INFUS.BAG IVPB SCH (03:30)
[2019-01-04] MEDS ORDERED: DEXTROSE 5%-WATER 100 ML IVPB ONE (03:43)
[2019-01-04] MEDS ORDERED: MEROPENEM 1 GM VIAL (RESTRICTED TO ID) IVPB ONE (03:43)
[2019-01-04] MEDS ORDERED: PIPERACILLIN/TAZOB 3.375 GM 3.375 GM in DEXTROSE 5%-WATER - 50 ML IVPB SCH ×2 (03:45→15:00)
[2019-01-04] MEDS ORDERED: LACTATED RINGERS SOLUTION 1,000 ML IV SCH (03:59)
[2019-01-04] MEDS ORDERED: NOREPINEPHRINE BITARTRATE 8,000 MCG in DEXTROSE 5%-WATER - 492 ML IV SCH (04:00)
--- NOTE | 2019-01-04 04:13 | PROC ---
<Anastacia Fleming - Last Filed: 01/04/19 04:11> Procedure Note Procedure: Place a central line in patients right internal juglar. Procedure done under sterile condition. CXR confirmed placement of central line. Central Line Insertion Indication: CVP Monitoring, Sepsis, Vasopressor Central Line: Triple Lumen Catheter Anesthesia: 1% Lidocaine Sterile Technique: Yes Ultrasound Guided Assistance: Yes Position: Right Internal Jugular Sterile Dressing Applied: Yes <Ceasar Parmar - Last Filed: 01/04/19 05:48> Procedure Note Procedure: Present for all vital parts of procedure; agree with above.
[2019-01-04 05:00] VITALS: TEMP 97.5
[2019-01-04 05:01] VITALS: BP 104/76; PULSE 68
[2019-01-04] MEDS ORDERED: DEXTROSE 5%-WATER - 50 ML IVPB ONE (05:25)
[2019-01-04] MEDS ORDERED: PIPERACILLIN/TAZOBACTAM 3.375 GM VIAL IVPB ONE (05:25)
[2019-01-04] MEDS ORDERED: HEPARIN NA (PORCINE) 5,000 UNITS/ML 1ML VIAL SQ SCH (06:00)
[2019-01-04 06:56] LABS: BASO % 0.1 % (0-2.0); EOS % 0.3 % (0-4.5); HEMATOCRIT 32.1 % (35.4-49); HEMOGLOBIN 10.7 GM/dL (11.7-16.9); LYMPH % 5.4 % (8-40); MCH 29.7 pg (25.7-33.7); MCHC 33.3 g/dl (32.0-35.9); MEAN CELL VOLUME 89.4 fl (80-96); MEAN PLT VOLUME 8.8 fl (7.5-11.1); MONO % 2.2 % (3.8-10.2); PLATELET COUNT 206 K/MM3 (134-434); RBC 3.59 M/mm3 (4.00-5.60); RDW 13.3 % (11.9-15.9); WHITE BLOOD COUNT 20.6 K/mm3 (4.0-10.0)
[2019-01-04 07:10] LABS: BILIRUBIN,TOTAL 0.8 mg/dL (0.2-1); CALCIUM 8.2 mg/dL (8.5-10.1); CREATININE 1.3 mg/dL (0.55-1.3); MAGNESIUM 2.1 mg/dL (1.8-2.4); TOT PROT 5.4 g/dl (6.4-8.2)
[2019-01-04 07:20] LABS: POTASSIUM 2.8 mmol/L (3.5-5.1)
[2019-01-04 07:29] LABS: INR 1.22 (0.83-1.09); PROTHROMBIN TIME (PATIENT) 14.4 SEC (9.7-13.0)
[2019-01-04 10:50] LABS: ANISOCYTOSIS 0; MACROCYTOSIS 0; PLATELET ESTIMATE NORMAL
--- NOTE | 2019-01-04 14:40 | EKG ---
Test Reason : Blood Pressure : / mmHG Vent. Rate : 076 BPM Atrial Rate : 076 BPM P-R Int : 156 ms QRS Dur : 086 ms QT Int : 410 ms P-R-T Axes : 011 040 021 degrees QTc Int : 461 ms NORMAL SINUS RHYTHM NORMAL ECG WHEN COMPARED WITH ECG OF 18-DEC-2018 19:35, NO SIGNIFICANT CHANGE WAS FOUND Confirmed by EMILEE FABIAN MD ([id number]) on 01/04/2019 2:40:13 PM Referred By: Confirmed By:EMILEE FABIAN MD
[2019-01-05] MEDS ORDERED: VANCOMYCIN HCL 1,250 MG in DEXTROSE 5%-WATER - 250 ML IVPB SCH (03:45)
== END 2019-01-04 06:40 | disposition short-term general hospital (02) | DRG 871 ==
LOC: JER 17:22 → JERBED 22:03 → J8W 01-04 01:28 → JICU 01-04 03:22
PROVIDERS: ADMIT Internal Medicine; ATTEND Internal Medicine
PROC: 05HM33Z Insertion of Infusion Device into Right Internal Jugular Vein, Percutaneous Approach (ICD-10-PCS; principal; 2019-01-04)
PROC: B513ZZA Fluoroscopy of Right Jugular Veins, Guidance (ICD-10-PCS; 2019-01-04)
PROC: B543ZZA Ultrasonography of Right Jugular Veins, Guidance (ICD-10-PCS; 2019-01-04)
DX: A41.9 Sepsis, unspecified organism (principal); L89.153 Pressure ulcer of sacral region, stage 3; R65.21 Severe sepsis with septic shock; G82.20 Paraplegia, unspecified; C41.2 Malignant neoplasm of vertebral column; N17.9 Acute kidney failure, unspecified; E87.1 Hypo-osmolality and hyponatremia; N30.90 Cystitis, unspecified without hematuria; E87.6 Hypokalemia; I10 Essential (primary) hypertension; R32 Unspecified urinary incontinence; Z87.891 Personal history of nicotine dependence; Z99.3 Dependence on wheelchair; E66.9 Obesity, unspecified; Z68.27 Body mass index [BMI] 27.0-27.9, adult; N44.2 Benign cyst of testis
CPT/HCPCS: 36415; 71045-TC-FY; 74176-TC; 76870-TC; 80053; 81003; 83605; 83735; 85025; 85610; 86850; 86900; 86901; 87040; 87086; 93005; 93010; 99283-25; J7030

== ENCOUNTER 2020-08-13 09:42 | Emergency (ER) | payer BC ==
[2020-08-13 09:53] VITALS: BMI 25.8
[2020-08-13 11:51] LABS: BASO % 0.8 % (0-2.0); EOS % 2.3 % (0-4.5); HEMATOCRIT 40.3 % (35.4-49); HEMOGLOBIN 13.6 GM/dL (11.7-16.9); MCH 30.3 pg (25.7-33.7); MCHC 33.7 g/dl (32.0-35.9); MEAN PLT VOLUME 8.9 fl (7.5-11.1); MONO % 8.1 % (3.8-10.2); NEUT % 66.8 % (42.8-82.8); PLATELET COUNT 227 K/MM3 (134-434); RBC 4.48 M/mm3 (4.00-5.60); RDW 13.6 % (11.9-15.9); WHITE BLOOD COUNT 8.6 K/mm3 (4.0-10.0)
[2020-08-13 11:58] LABS: INR 1.09 (0.83-1.09); PROTHROMBIN TIME (PATIENT) 13.2 SEC (9.7-13.0)
[2020-08-13 12:12] LABS: CALCIUM 9.2 mg/dL (8.5-10.1)
[2020-08-13 12:13] LABS: ALBUMIN 3.3 g/dl (3.4-5.0); BLOOD UREA NITROGEN 19.5 mg/dL (7-18)
[2020-08-13 12:18] LABS: BILIRUBIN,TOTAL 0.8 mg/dL (0.2-1); TOT PROT 8.1 g/dl (6.4-8.2)
[2020-08-13 12:28] LABS: POTASSIUM 6.3 mmol/L (3.5-5.1)
[2020-08-13 12:56] VITALS: BP 164/53; PULSE 55; TEMP 97.8
[2020-08-13 13:16] LABS: POTASSIUM 3.5 mmol/L (3.5-5.1)
[2020-08-13 13:17] LABS: CALCIUM 9.4 mg/dL (8.5-10.1)
[2020-08-13 13:18] LABS: BLOOD UREA NITROGEN 18.8 mg/dL (7-18)
[2020-08-13 13:21] LABS: CREATININE 0.9 mg/dL (0.55-1.3)
[2020-08-13] MEDS ORDERED: AMOX TR/POT CLAV 875MG/125MG TABLETS (FP) PO ONE (13:21)
[2020-08-13] MEDS ORDERED: AMOX TR/POT CLAV 875MG/125MG TABLETS (FP) ONE (13:29)
== END 2020-08-13 13:39 | disposition home or self-care (01) ==
LOC: JER 09:42
DX: S90.822A Blister (nonthermal), left foot, initial encounter (principal); Y99.8 Other external cause status
CPT/HCPCS: 36415; 73610-TC-RT-FY; 73630-TC-RT-FY; 80048; 80053; 85025; 85610; 87040; 87070; 87186; 87205; 93005; 93010; 99285-25; C9803; U0003

== ENCOUNTER 2020-09-10 15:00 | Emergency (ER) | payer BC, OTHER ==
[2020-09-10 15:42] VITALS: BP 159/74; PULSE 80; TEMP 99.5; BMI 25.8
== END 2020-09-10 15:44 | disposition home or self-care (01) ==
LOC: FER 15:00
DX: U07.1 COVID-19 (principal)
CPT/HCPCS: 99283-25; C9803; U0003

== ENCOUNTER 2020-11-26 12:55 | Inpatient (IN) | payer BC ==
[2020-11-26 14:49] LABS: BASO % 0.7 % (0-2.0); EOS % 10.3 % (0-4.5); HEMATOCRIT 31.7 % (35.4-49); HEMOGLOBIN 10.3 GM/dL (11.7-16.9); LYMPH % 22.7 % (8-40); MCH 27.6 pg (25.7-33.7); MCHC 32.4 g/dl (32.0-35.9); MEAN CELL VOLUME 85.4 fl (80-96); MEAN PLT VOLUME 7.2 fl (7.5-11.1); MONO % 6.5 % (3.8-10.2); NEUT % 59.8 % (42.8-82.8); PLATELET COUNT 265 K/MM3 (134-434); RBC 3.72 M/mm3 (4.00-5.60); RDW 15.8 % (11.9-15.9); WHITE BLOOD COUNT 9.6 K/mm3 (4.0-10.0)
[2020-11-26 15:10] LABS: ALBUMIN 3.2 g/dl (3.4-5.0); BLOOD UREA NITROGEN 17.3 mg/dL (7-18); CALCIUM 9.4 mg/dL (8.5-10.1)
[2020-11-26 15:13] LABS: CREATININE 0.9 mg/dL (0.55-1.3)
[2020-11-26 15:15] LABS: BILIRUBIN,TOTAL 0.4 mg/dL (0.2-1); TOT PROT 7.8 g/dl (6.4-8.2)
[2020-11-26 16:01] LABS: ERYTHROCYTE SEDIMENTATION RATE 75 mm/hr (0-20)
[2020-11-26] MEDS ORDERED: morphine CARPU-JECT 4 MG/1 ML DISP.SYRIN IVPUSH ONE (16:47)
[2020-11-26 18:11] LABS: EPI CELLS >36 /uL (0-25.1); HYALINE CASTS 2 /uL (0-3.1); URINE APPEARANCE CLEAR; URINE BACTERIA 49 /uL (0-1359); URINE BILIRUBIN NEGATIVE (NEGATIVE); URINE COLOR YELLOW; URINE GLUCOSE (UA) NEGATIVE (NEGATIVE); URINE KETONE NEGATIVE (NEGATIVE); URINE LEUK ESTERASE 2+ (NEGATIVE); URINE NITRITE NEGATIVE (NEGATIVE); URINE PROTEIN NEGATIVE (NEGATIVE); URINE RBC 21 /uL (0-23.9); URINE UROBILINOGEN 0.2 mg/dL (0.2-1.0); URINE WBC 95 /uL (0-25.8)
[2020-11-26] MEDS ORDERED: MORPHINE SULFATE 2 MG/ML VIAL ONE (18:30)
[2020-11-26] MEDS ORDERED: LIDOCAINE 5% TOPICAL PATCH TP ONE (18:46)
[2020-11-26] MEDS ORDERED: PANTOPRAZOLE 40 MG TABLET ONE (18:54)
[2020-11-26] MEDS: SODIUM CHLORIDE 1,000 ML IV SCH (19:02)
[2020-11-26] MEDS: PANTOPRAZOLE 40 MG TABLET PO SCH (19:02)
[2020-11-26] MEDS ORDERED: LIDOCAINE 5% TOPICAL PATCH ONE (19:05)
[2020-11-26] MEDS ORDERED: LIDOCAINE PATCH REMOVAL MC SCH (22:00)
[2020-11-26 22:27] LABS: LIPASE 74 U/L (73-393)
[2020-11-26 22:28] LABS: IRON SERUM 30 ug/dL (50-175); TOTAL IRON BINDING CAPACITY 271 ug/dL (250-450)
[2020-11-27] MEDS: SODIUM CHLORIDE 1,000 ML IV SCH (05:02)
[2020-11-27 08:34] LABS: BASO % 0.6 % (0-2.0); EOS % 9.1 % (0-4.5); HEMOGLOBIN 10.1 GM/dL (11.7-16.9); LYMPH % 21.8 % (8-40); MCH 28.3 pg (25.7-33.7); MCHC 33.6 g/dl (32.0-35.9); MEAN CELL VOLUME 84.4 fl (80-96); MEAN PLT VOLUME 7.4 fl (7.5-11.1); MONO % 6.7 % (3.8-10.2); NEUT % 61.8 % (42.8-82.8); PLATELET COUNT 250 K/MM3 (134-434); RBC 3.56 M/mm3 (4.00-5.60); RDW 15.7 % (11.9-15.9); WHITE BLOOD COUNT 8.5 K/mm3 (4.0-10.0)
[2020-11-27 09:03] LABS: ALBUMIN 2.8 g/dl (3.4-5.0); CALCIUM 8.7 mg/dL (8.5-10.1)
[2020-11-27 09:05] LABS: MAGNESIUM 2.1 mg/dL (1.8-2.4)
[2020-11-27 09:07] LABS: CREATININE 0.8 mg/dL (0.55-1.3); PHOSPHOROUS 4.1 mg/dL (2.5-4.9)
[2020-11-27 09:08] LABS: BILIRUBIN,TOTAL 0.6 mg/dL (0.2-1)
[2020-11-27 09:09] LABS: TOT PROT 6.6 g/dl (6.4-8.2)
[2020-11-27] MEDS ORDERED: FLU VACCINE (FLULAVAL) PF 60 MCG/0.5 ML SYRINGE 2020-2021 IM ONE (10:00)
[2020-11-27] MEDS: PANTOPRAZOLE 40 MG TABLET PO SCH (11:05)
[2020-11-27] MEDS: ENOXAPARIN NA (PORCINE) 40 MG/0.4 ML DISP.SYRIN SQ SCH (11:05)
[2020-11-27] MEDS: COLLAGENASE CLOSTRIDIUM HIST. 30 GRAMS TUBE TP SCH (17:04)
[2020-11-27] MEDS: ACETAMINOPHEN 325 MG TABLET (FP) PO PRN (23:53)
[2020-11-28 09:39] LABS: BASO % 0.5 % (0-2.0); EOS % 6.2 % (0-4.5); HEMATOCRIT 29.8 % (35.4-49); LYMPH % 18.4 % (8-40); MCH 28.4 pg (25.7-33.7); MCHC 33.7 g/dl (32.0-35.9); MEAN CELL VOLUME 84.2 fl (80-96); MEAN PLT VOLUME 7.6 fl (7.5-11.1); MONO % 5.3 % (3.8-10.2); NEUT % 69.6 % (42.8-82.8); PLATELET COUNT 251 K/MM3 (134-434); RBC 3.54 M/mm3 (4.00-5.60); RDW 15.6 % (11.9-15.9); WHITE BLOOD COUNT 10.4 K/mm3 (4.0-10.0)
[2020-11-28 10:05] LABS: ALBUMIN 2.7 g/dl (3.4-5.0)
[2020-11-28 10:06] LABS: BLOOD UREA NITROGEN 15.7 mg/dL (7-18)
[2020-11-28 10:08] LABS: BILIRUBIN,TOTAL 0.4 mg/dL (0.2-1); TOT PROT 6.7 g/dl (6.4-8.2)
[2020-11-28] MEDS: PANTOPRAZOLE 40 MG TABLET PO SCH (10:48)
[2020-11-28] MEDS: COLLAGENASE CLOSTRIDIUM HIST. 30 GRAMS TUBE TP SCH (10:48)
[2020-11-28] MEDS: ENOXAPARIN NA (PORCINE) 40 MG/0.4 ML DISP.SYRIN SQ SCH (10:48)
[2020-11-28] MEDS ORDERED: PT OWN MED DRAWER 7, Y5N ONE (14:33)
[2020-11-28] MEDS: CHLORTHALIDONE 25 MG TABLET PO SCH (15:11)
[2020-11-28] MEDS: amLODIPine BESYLATE 5 MG TABLET (FP) PO SCH (15:11)
[2020-11-28 15:14] VITALS: BMI 22.6
[2020-11-28] MEDS: ACETAMINOPHEN 325 MG TABLET (FP) PO PRN (15:50)
[2020-11-29 09:43] LABS: BASO % 0.5 % (0-2.0); EOS % 5.8 % (0-4.5); HEMATOCRIT 29.9 % (35.4-49); LYMPH % 22.7 % (8-40); MCH 27.9 pg (25.7-33.7); MCHC 33.4 g/dl (32.0-35.9); MEAN CELL VOLUME 83.5 fl (80-96); MEAN PLT VOLUME 7.6 fl (7.5-11.1); MONO % 5.6 % (3.8-10.2); NEUT % 65.4 % (42.8-82.8); PLATELET COUNT 252 K/MM3 (134-434); RBC 3.58 M/mm3 (4.00-5.60); RDW 15.4 % (11.9-15.9); WHITE BLOOD COUNT 9.8 K/mm3 (4.0-10.0)
[2020-11-29 10:03] LABS: ALBUMIN 2.8 g/dl (3.4-5.0); CALCIUM 8.8 mg/dL (8.5-10.1)
[2020-11-29 10:05] LABS: BLOOD UREA NITROGEN 17.8 mg/dL (7-18)
[2020-11-29] MEDS: CHLORTHALIDONE 25 MG TABLET PO SCH (10:05)
[2020-11-29] MEDS ORDERED: PT OWN MED DRAWER 7, Y5N ONE (10:05)
[2020-11-29] MEDS: MULTIVITAMINS (DAILY MVI) TABLET (FP) PO SCH (10:06)
[2020-11-29] MEDS: PANTOPRAZOLE 40 MG TABLET PO SCH (10:07)
[2020-11-29] MEDS: CYANOCOBALAMIN (VITAMIN B-12) 1000 MCG/1 ML VIAL IM SCH (10:07)
[2020-11-29] MEDS: ENOXAPARIN NA (PORCINE) 40 MG/0.4 ML DISP.SYRIN SQ SCH (10:07)
[2020-11-29] MEDS: amLODIPine BESYLATE 5 MG TABLET (FP) PO SCH (10:07)
[2020-11-29] MEDS: COLLAGENASE CLOSTRIDIUM HIST. 30 GRAMS TUBE TP SCH (10:07)
[2020-11-29 10:08] LABS: BILIRUBIN,TOTAL 0.5 mg/dL (0.2-1); CREATININE 0.9 mg/dL (0.55-1.3); TOT PROT 6.9 g/dl (6.4-8.2)
[2020-11-30] MEDS: ENOXAPARIN NA (PORCINE) 40 MG/0.4 ML DISP.SYRIN SQ SCH (10:07)
[2020-11-30] MEDS: CYANOCOBALAMIN (VITAMIN B-12) 1000 MCG/1 ML VIAL IM SCH (10:08)
[2020-11-30] MEDS: MULTIVITAMINS (DAILY MVI) TABLET (FP) PO SCH (10:08)
[2020-11-30] MEDS: amLODIPine BESYLATE 5 MG TABLET (FP) PO SCH (10:08)
[2020-11-30] MEDS: COLLAGENASE CLOSTRIDIUM HIST. 30 GRAMS TUBE TP SCH (10:08)
[2020-11-30] MEDS: PANTOPRAZOLE 40 MG TABLET PO SCH (10:08)
[2020-11-30] MEDS: CHLORTHALIDONE 25 MG TABLET PO SCH (10:11)
[2020-11-30 10:44] LABS: BASO % 0.5 % (0-2.0); EOS % 6.4 % (0-4.5); HEMATOCRIT 30.7 % (35.4-49); HEMOGLOBIN 10.2 GM/dL (11.7-16.9); LYMPH % 19.7 % (8-40); MCHC 33.1 g/dl (32.0-35.9); MEAN CELL VOLUME 84.6 fl (80-96); MEAN PLT VOLUME 7.6 fl (7.5-11.1); MONO % 6.1 % (3.8-10.2); NEUT % 67.3 % (42.8-82.8); PLATELET COUNT 261 K/MM3 (134-434); RBC 3.63 M/mm3 (4.00-5.60); RDW 15.5 % (11.9-15.9); WHITE BLOOD COUNT 10.2 K/mm3 (4.0-10.0)
[2020-11-30 11:03] LABS: CALCIUM 9.1 mg/dL (8.5-10.1)
[2020-11-30 11:04] LABS: ALBUMIN 2.8 g/dl (3.4-5.0); BLOOD UREA NITROGEN 22.1 mg/dL (7-18)
[2020-11-30 11:06] LABS: CREATININE 0.9 mg/dL (0.55-1.3)
[2020-11-30 11:08] LABS: TOT PROT 7.2 g/dl (6.4-8.2)
[2020-11-30 11:11] LABS: BILIRUBIN,TOTAL 0.4 mg/dL (0.2-1)
[2020-11-30 15:56] VITALS: BP 138/61; PULSE 88; TEMP 98.4
== END 2020-11-30 18:33 | disposition home or self-care (01) | DRG 722 ==
LOC: JER 12:55 → JERBED 17:26 → J5S 11-27 03:58
PROVIDERS: ADMIT Internal Medicine; ATTEND Internal Medicine
DX: C61 Malignant neoplasm of prostate (principal); L89.223 Pressure ulcer of left hip, stage 3; L89.314 Pressure ulcer of right buttock, stage 4; L89.214 Pressure ulcer of right hip, stage 4; G92 Toxic encephalopathy; I96 Gangrene, not elsewhere classified; G82.20 Paraplegia, unspecified; I10 Essential (primary) hypertension; L89.892 Pressure ulcer of other site, stage 2; N40.1 Benign prostatic hyperplasia with lower urinary tract symptoms; R33.9 Retention of urine, unspecified; D64.9 Anemia, unspecified
CPT/HCPCS: 36415; 70450-TC; 74176-TC; 74177-TC; 77074-TC-FY; 80053; 81003; 82085; 82140; 82272; 82607; 82728; 82977; 83036; 83090; 83540; 83550; 83690; 83735; 83874; 84100; 84153; 84484; 85025; 85651; 86140; 87040; 87086; 87186; 93005; 93010; 93306-TC; 97116-GP; 97161-GP; 99285-25; C9803; Q2036; Q9967; U0003; U0005

== ENCOUNTER 2021-01-01 12:56 | Inpatient (IN) | payer BC ==
[2021-01-01 14:32] LABS: BASO % 0.5 % (0-2.0); EOS % 3.4 % (0-4.5); HEMOGLOBIN 9.7 GM/dL (11.7-16.9); LYMPH % 18.4 % (8-40); MCHC 33.3 g/dl (32.0-35.9); MONO % 6.5 % (3.8-10.2); NEUT % 71.2 % (42.8-82.8); PLATELET COUNT 322 K/MM3 (134-434); RBC 3.58 M/mm3 (4.00-5.60); RDW 15.1 % (11.9-15.9); WHITE BLOOD COUNT 10.2 K/mm3 (4.0-10.0)
[2021-01-01 14:40] LABS: INR 1.08 (0.83-1.09); PROTHROMBIN TIME (PATIENT) 13.3 SEC (9.7-13.0)
[2021-01-01 14:40] LABS: EPI CELLS 36 /uL (0-25.1); HYALINE CASTS 2 /uL (0-3.1); PH,URINE 7.5 (5.0-8.0); URINE APPEARANCE CLEAR; URINE BACTERIA 29 /uL (0-1359); URINE BILIRUBIN NEGATIVE (NEGATIVE); URINE COLOR YELLOW; URINE GLUCOSE (UA) NEGATIVE (NEGATIVE); URINE KETONE NEGATIVE (NEGATIVE); URINE LEUK ESTERASE 2+ (NEGATIVE); URINE NITRITE NEGATIVE (NEGATIVE); URINE PROTEIN TRACE (NEGATIVE); URINE RBC 10 /uL (0-23.9); URINE UROBILINOGEN 0.2 mg/dL (0.2-1.0); URINE WBC 150 /uL (0-25.8)
[2021-01-01 14:55] LABS: CALCIUM 9.1 mg/dL (8.5-10.1)
[2021-01-01 14:56] LABS: ALBUMIN 2.9 g/dl (3.4-5.0); BLOOD UREA NITROGEN 15.7 mg/dL (7-18)
[2021-01-01 14:58] LABS: CREATININE 0.7 mg/dL (0.55-1.3)
[2021-01-01 15:00] LABS: BILIRUBIN,TOTAL 0.4 mg/dL (0.2-1); TOT PROT 8.1 g/dl (6.4-8.2)
[2021-01-01] MEDS ORDERED: PIPERACILLIN/TAZOB 4.5 GM 4.5 GM in DEXTROSE 5%-WATER 100 ML IVPB ONE (15:13)
[2021-01-01] MEDS ORDERED: VANCOMYCIN 1 GM in D5W (PRE-DOCKED) 1,000 MG/250 ML IVPB ONE (15:13)
[2021-01-01] MEDS ORDERED: VANCOMYCIN 1 GRAM (PRE-DOCKED) 1,000 MG/250 ML BAG IVPB ONE (15:53)
[2021-01-01] MEDS ORDERED: PIPERACILLIN/TAZOB 4.5 GM 4.5 GM/100 ML BAG IVPB ONE (15:53)
[2021-01-01] MEDS ORDERED: ACETAMINOPHEN 325 MG TABLET (FP) PO PRN (18:44)
[2021-01-01] MEDS: GABAPENTIN 400 MG CAPSULE PO SCH (21:03)
[2021-01-01 23:29] VITALS: BMI 22.8
[2021-01-02] MEDS ORDERED: PIPERACILLIN/TAZOBACTAM 4.5 GM VIAL IVPB ONE ×3 (01:17→17:43)
[2021-01-02] MEDS ORDERED: DEXTROSE 5%-WATER 100 ML IVPB ONE ×3 (01:17→17:46)
[2021-01-02] MEDS: PIPERACILLIN/TAZOB 4.5 GM 4.5 GM in DEXTROSE 5%-WATER 100 ML IVPB SCH ×3 (01:26→18:11)
[2021-01-02] MEDS ORDERED: VANCOMYCIN/WATER BAGS 1,250 MG/250 ML BAG IVPB ONE (04:00)
[2021-01-02 08:21] LABS: BASO % 0.4 % (0-2.0); EOS % 5.9 % (0-4.5); HEMATOCRIT 26.8 % (35.4-49); HEMOGLOBIN 8.8 GM/dL (11.7-16.9); LYMPH % 22.6 % (8-40); MCH 26.6 pg (25.7-33.7); MCHC 32.9 g/dl (32.0-35.9); MEAN CELL VOLUME 80.9 fl (80-96); MEAN PLT VOLUME 7.1 fl (7.5-11.1); MONO % 6.5 % (3.8-10.2); NEUT % 64.6 % (42.8-82.8); PLATELET COUNT 329 K/MM3 (134-434); RBC 3.32 M/mm3 (4.00-5.60); RDW 15.2 % (11.9-15.9); WHITE BLOOD COUNT 9.3 K/mm3 (4.0-10.0)
[2021-01-02 08:31] LABS: CALCIUM 8.7 mg/dL (8.5-10.1)
[2021-01-02 08:32] LABS: ALBUMIN 2.4 g/dl (3.4-5.0); BLOOD UREA NITROGEN 16.9 mg/dL (7-18); MAGNESIUM 2.2 mg/dL (1.8-2.4)
[2021-01-02 08:35] LABS: CREATININE 0.9 mg/dL (0.55-1.3)
[2021-01-02 08:37] LABS: BILIRUBIN,TOTAL 0.3 mg/dL (0.2-1); TOT PROT 6.7 g/dl (6.4-8.2)
[2021-01-02] MEDS: amLODIPine BESYLATE 10 MG TABLET (FP) PO SCH (09:33)
[2021-01-02] MEDS: ENOXAPARIN NA (PORCINE) 40 MG/0.4 ML DISP.SYRIN SQ SCH (09:33)
[2021-01-02] MEDS: GABAPENTIN 400 MG CAPSULE PO SCH ×2 (09:33→21:32)
[2021-01-02] MEDS ORDERED: FLU VACCINE (FLULAVAL) PF 60 MCG/0.5 ML SYRINGE 2020-2021 IM ONE (10:00)
[2021-01-03] MEDS ORDERED: DEXTROSE 5%-WATER 100 ML IVPB ONE ×3 (01:27→18:01)
[2021-01-03] MEDS ORDERED: PIPERACILLIN/TAZOBACTAM 4.5 GM VIAL IVPB ONE ×3 (01:27→18:01)
[2021-01-03] MEDS: PIPERACILLIN/TAZOB 4.5 GM 4.5 GM in DEXTROSE 5%-WATER 100 ML IVPB SCH ×3 (01:30→18:15)
[2021-01-03] MEDS: GABAPENTIN 400 MG CAPSULE PO SCH ×2 (10:01→21:34)
[2021-01-03] MEDS: amLODIPine BESYLATE 10 MG TABLET (FP) PO SCH (10:01)
[2021-01-03] MEDS: ENOXAPARIN NA (PORCINE) 40 MG/0.4 ML DISP.SYRIN SQ SCH (10:01)
[2021-01-03 11:40] LABS: HEMATOCRIT 25.9 % (35.4-49); HEMOGLOBIN 8.4 GM/dL (11.7-16.9); MCH 26.3 pg (25.7-33.7); MCHC 32.4 g/dl (32.0-35.9); MEAN CELL VOLUME 81.1 fl (80-96); MEAN PLT VOLUME 7.2 fl (7.5-11.1); PLATELET COUNT 308 K/MM3 (134-434); WHITE BLOOD COUNT 9.3 K/mm3 (4.0-10.0)
[2021-01-04] MEDS ORDERED: PIPERACILLIN/TAZOBACTAM 4.5 GM VIAL IVPB ONE ×3 (00:48→17:57)
[2021-01-04] MEDS ORDERED: DEXTROSE 5%-WATER 100 ML IVPB ONE ×3 (00:48→17:57)
[2021-01-04] MEDS: PIPERACILLIN/TAZOB 4.5 GM 4.5 GM in DEXTROSE 5%-WATER 100 ML IVPB SCH ×3 (00:59→18:20)
[2021-01-04 08:42] LABS: INR 1.15 (0.83-1.09); PROTHROMBIN TIME (PATIENT) 13.9 SEC (9.7-13.0)
[2021-01-04 08:46] LABS: BASO % 0.6 % (0-2.0); EOS % 4.5 % (0-4.5); HEMATOCRIT 25.6 % (35.4-49); HEMOGLOBIN 8.4 GM/dL (11.7-16.9); LYMPH % 19.5 % (8-40); MCH 26.7 pg (25.7-33.7); MEAN CELL VOLUME 80.9 fl (80-96); MEAN PLT VOLUME 7.1 fl (7.5-11.1); MONO % 6.1 % (3.8-10.2); NEUT % 69.3 % (42.8-82.8); PLATELET COUNT 329 K/MM3 (134-434); RBC 3.16 M/mm3 (4.00-5.60); RDW 14.9 % (11.9-15.9); WHITE BLOOD COUNT 9.3 K/mm3 (4.0-10.0)
[2021-01-04 09:01] LABS: ALBUMIN 2.4 g/dl (3.4-5.0); CALCIUM 8.4 mg/dL (8.5-10.1)
[2021-01-04 09:02] LABS: BLOOD UREA NITROGEN 22.4 mg/dL (7-18)
[2021-01-04 09:05] LABS: BILIRUBIN,TOTAL 0.2 mg/dL (0.2-1); TOT PROT 6.7 g/dl (6.4-8.2)
[2021-01-04] MEDS: GABAPENTIN 400 MG CAPSULE PO SCH ×2 (12:05→21:44)
[2021-01-04] MEDS: amLODIPine BESYLATE 10 MG TABLET (FP) PO SCH (12:05)
[2021-01-04] MEDS: ENOXAPARIN NA (PORCINE) 40 MG/0.4 ML DISP.SYRIN SQ SCH (12:05)
[2021-01-05] MEDS ORDERED: PIPERACILLIN/TAZOBACTAM 4.5 GM VIAL IVPB ONE ×3 (02:11→17:04)
[2021-01-05] MEDS ORDERED: DEXTROSE 5%-WATER 100 ML IVPB ONE ×3 (02:11→17:04)
[2021-01-05] MEDS: PIPERACILLIN/TAZOB 4.5 GM 4.5 GM in DEXTROSE 5%-WATER 100 ML IVPB SCH ×3 (02:25→17:11)
[2021-01-05 08:10] LABS: HEMATOCRIT 27.6 % (35.4-49); MCH 26.1 pg (25.7-33.7); MCHC 32.6 g/dl (32.0-35.9); MEAN CELL VOLUME 80.1 fl (80-96); MEAN PLT VOLUME 6.9 fl (7.5-11.1); PLATELET COUNT 315 K/MM3 (134-434); RBC 3.45 M/mm3 (4.00-5.60); RDW 15.4 % (11.9-15.9); WHITE BLOOD COUNT 8.5 K/mm3 (4.0-10.0)
[2021-01-05 09:05] LABS: BLOOD UREA NITROGEN 23.8 mg/dL (7-18); CALCIUM 8.5 mg/dL (8.5-10.1); MAGNESIUM 2.2 mg/dL (1.8-2.4)
[2021-01-05 09:09] LABS: CREATININE 0.9 mg/dL (0.55-1.3)
[2021-01-05] MEDS: COLLAGENASE CLOSTRIDIUM HIST. 30 GRAMS TUBE TP SCH ×2 (09:40→10:26)
[2021-01-05] MEDS: amLODIPine BESYLATE 10 MG TABLET (FP) PO SCH (09:40)
[2021-01-05] MEDS: GABAPENTIN 400 MG CAPSULE PO SCH ×2 (09:40→21:35)
[2021-01-05] MEDS: ENOXAPARIN NA (PORCINE) 40 MG/0.4 ML DISP.SYRIN SQ SCH (09:40)
[2021-01-05] MEDS: MULTIVITAMINS (DAILY MVI) TABLET (FP) PO SCH (09:40)
[2021-01-06] MEDS ORDERED: DEXTROSE 5%-WATER 100 ML IVPB ONE ×3 (01:16→17:00)
[2021-01-06] MEDS ORDERED: PIPERACILLIN/TAZOBACTAM 4.5 GM VIAL IVPB ONE ×3 (01:16→17:00)
[2021-01-06] MEDS: PIPERACILLIN/TAZOB 4.5 GM 4.5 GM in DEXTROSE 5%-WATER 100 ML IVPB SCH ×3 (01:20→17:07)
[2021-01-06 09:03] LABS: HEMOGLOBIN 8.6 GM/dL (11.7-16.9); MCH 26.4 pg (25.7-33.7); MCHC 33.2 g/dl (32.0-35.9); MEAN CELL VOLUME 79.5 fl (80-96); MEAN PLT VOLUME 7.3 fl (7.5-11.1); PLATELET COUNT 344 K/MM3 (134-434); RBC 3.26 M/mm3 (4.00-5.60); RDW 15.1 % (11.9-15.9); WHITE BLOOD COUNT 10.3 K/mm3 (4.0-10.0)
[2021-01-06 09:43] LABS: CALCIUM 8.4 mg/dL (8.5-10.1)
[2021-01-06 09:44] LABS: BLOOD UREA NITROGEN 25.6 mg/dL (7-18)
[2021-01-06 09:45] LABS: MAGNESIUM 2.2 mg/dL (1.8-2.4)
[2021-01-06] MEDS ORDERED: PT OWN MED DRAWER 7, Y5N ONE (10:17)
[2021-01-06] MEDS: MULTIVITAMINS (DAILY MVI) TABLET (FP) PO SCH (10:19)
[2021-01-06] MEDS: amLODIPine BESYLATE 10 MG TABLET (FP) PO SCH (10:19)
[2021-01-06] MEDS: GABAPENTIN 400 MG CAPSULE PO SCH ×2 (10:19→21:31)
[2021-01-06] MEDS: COLLAGENASE CLOSTRIDIUM HIST. 30 GRAMS TUBE TP SCH (10:22)
[2021-01-06] MEDS: ENOXAPARIN NA (PORCINE) 40 MG/0.4 ML DISP.SYRIN SQ SCH (10:22)
[2021-01-07] MEDS ORDERED: DEXTROSE 5%-WATER 100 ML IVPB ONE ×3 (02:41→17:26)
[2021-01-07] MEDS ORDERED: PIPERACILLIN/TAZOBACTAM 4.5 GM VIAL IVPB ONE ×3 (02:41→17:25)
[2021-01-07] MEDS: PIPERACILLIN/TAZOB 4.5 GM 4.5 GM in DEXTROSE 5%-WATER 100 ML IVPB SCH ×3 (02:45→17:29)
[2021-01-07 07:42] LABS: HEMATOCRIT 24.5 % (35.4-49); HEMOGLOBIN 8.2 GM/dL (11.7-16.9); MCH 26.8 pg (25.7-33.7); MCHC 33.5 g/dl (32.0-35.9); MEAN CELL VOLUME 79.8 fl (80-96); MEAN PLT VOLUME 7.3 fl (7.5-11.1); PLATELET COUNT 317 K/MM3 (134-434); RBC 3.07 M/mm3 (4.00-5.60); RDW 15.3 % (11.9-15.9); WHITE BLOOD COUNT 9.1 K/mm3 (4.0-10.0)
[2021-01-07 08:01] LABS: MAGNESIUM 2.2 mg/dL (1.8-2.4)
[2021-01-07 08:04] LABS: CREATININE 0.9 mg/dL (0.55-1.3)
[2021-01-07] MEDS: ENOXAPARIN NA (PORCINE) 40 MG/0.4 ML DISP.SYRIN SQ SCH (09:16)
[2021-01-07] MEDS: amLODIPine BESYLATE 10 MG TABLET (FP) PO SCH (10:23)
[2021-01-07] MEDS: GABAPENTIN 400 MG CAPSULE PO SCH ×2 (10:25→21:11)
[2021-01-07] MEDS: MULTIVITAMINS (DAILY MVI) TABLET (FP) PO SCH (10:25)
[2021-01-07] MEDS: COLLAGENASE CLOSTRIDIUM HIST. 30 GRAMS TUBE TP SCH (10:25)
[2021-01-07] MEDS ORDERED: PROPOFOL 20 ML ONE ×2 (12:32→14:01)
[2021-01-07] MEDS ORDERED: LIDOCAINE HCL 1%, 10 MG/ML (20ML VIAL) ONE (13:26)
[2021-01-07] MEDS ORDERED: MIDAZOLAM HCL 2 MG/2 ML SINGLE DOSE VIAL ONE (13:47)
[2021-01-07] MEDS ORDERED: ONDANSETRON 4 MG/2 ML VIAL IVPUSH PRN (14:52)
[2021-01-07] MEDS ORDERED: ACETAMINOPHEN 325 MG TABLET (FP) PO PRN (15:20)
[2021-01-07] MEDS ORDERED: ACETAMINOPHEN 325 MG TABLET (FP) ONE (16:19)
[2021-01-07] MEDS: LACTATED RINGERS SOLUTION 1,000 ML IV SCH (16:44)
[2021-01-07 18:31] LABS: HEMATOCRIT 27.7 % (35.4-49); HEMOGLOBIN 8.9 GM/dL (11.7-16.9); MCH 25.8 pg (25.7-33.7); MCHC 32.1 g/dl (32.0-35.9); MEAN CELL VOLUME 80.5 fl (80-96); MEAN PLT VOLUME 7.4 fl (7.5-11.1); PLATELET COUNT 333 K/MM3 (134-434); RBC 3.45 M/mm3 (4.00-5.60)
[2021-01-08] MEDS ORDERED: DEXTROSE 5%-WATER 100 ML IVPB ONE ×3 (00:50→17:32)
[2021-01-08] MEDS ORDERED: PIPERACILLIN/TAZOBACTAM 4.5 GM VIAL IVPB ONE ×3 (00:50→17:32)
[2021-01-08] MEDS: PIPERACILLIN/TAZOB 4.5 GM 4.5 GM in DEXTROSE 5%-WATER 100 ML IVPB SCH ×3 (01:00→17:37)
[2021-01-08] MEDS: LACTATED RINGERS SOLUTION 1,000 ML IV SCH ×2 (06:09→16:57)
[2021-01-08 09:09] LABS: HEMATOCRIT 26.3 % (35.4-49); HEMOGLOBIN 8.8 GM/dL (11.7-16.9); MCH 26.9 pg (25.7-33.7); MCHC 33.5 g/dl (32.0-35.9); MEAN CELL VOLUME 80.5 fl (80-96); MEAN PLT VOLUME 7.6 fl (7.5-11.1); PLATELET COUNT 311 K/MM3 (134-434); RBC 3.27 M/mm3 (4.00-5.60); RDW 15.5 % (11.9-15.9); WHITE BLOOD COUNT 10.2 K/mm3 (4.0-10.0)
[2021-01-08 09:31] LABS: ALBUMIN 2.4 g/dl (3.4-5.0)
[2021-01-08 09:32] LABS: BLOOD UREA NITROGEN 16.5 mg/dL (7-18); MAGNESIUM 2.1 mg/dL (1.8-2.4)
[2021-01-08 09:34] LABS: CALCIUM 8.2 mg/dL (8.5-10.1); CREATININE 0.9 mg/dL (0.55-1.3)
[2021-01-08 09:36] LABS: BILIRUBIN,TOTAL 0.4 mg/dL (0.2-1)
[2021-01-08] MEDS: MULTIVITAMINS (DAILY MVI) TABLET (FP) PO SCH (10:35)
[2021-01-08] MEDS: GABAPENTIN 400 MG CAPSULE PO SCH ×2 (10:35→21:36)
[2021-01-08] MEDS: ENOXAPARIN NA (PORCINE) 40 MG/0.4 ML DISP.SYRIN SQ SCH (10:35)
[2021-01-08] MEDS: amLODIPine BESYLATE 10 MG TABLET (FP) PO SCH (10:35)
[2021-01-08] MEDS: COLLAGENASE CLOSTRIDIUM HIST. 30 GRAMS TUBE TP SCH (10:49)
[2021-01-09] MEDS ORDERED: PIPERACILLIN/TAZOBACTAM 4.5 GM VIAL IVPB ONE ×3 (00:44→17:23)
[2021-01-09] MEDS ORDERED: DEXTROSE 5%-WATER 100 ML IVPB ONE ×3 (00:45→17:23)
[2021-01-09] MEDS: PIPERACILLIN/TAZOB 4.5 GM 4.5 GM in DEXTROSE 5%-WATER 100 ML IVPB SCH ×3 (01:00→17:33)
[2021-01-09 09:26] LABS: HEMOGLOBIN 8.8 GM/dL (11.7-16.9); MCH 26.1 pg (25.7-33.7); MCHC 32.7 g/dl (32.0-35.9); MEAN CELL VOLUME 79.9 fl (80-96); MEAN PLT VOLUME 7.1 fl (7.5-11.1); PLATELET COUNT 350 K/MM3 (134-434); RBC 3.38 M/mm3 (4.00-5.60); RDW 15.3 % (11.9-15.9)
[2021-01-09] MEDS: ENOXAPARIN NA (PORCINE) 40 MG/0.4 ML DISP.SYRIN SQ SCH (09:52)
[2021-01-09] MEDS: GABAPENTIN 400 MG CAPSULE PO SCH ×2 (09:52→22:37)
[2021-01-09] MEDS: MULTIVITAMINS (DAILY MVI) TABLET (FP) PO SCH (09:52)
[2021-01-09] MEDS: amLODIPine BESYLATE 10 MG TABLET (FP) PO SCH (09:52)
[2021-01-09 09:59] LABS: ALBUMIN 2.3 g/dl (3.4-5.0); BLOOD UREA NITROGEN 18.1 mg/dL (7-18); CALCIUM 8.4 mg/dL (8.5-10.1); MAGNESIUM 2.3 mg/dL (1.8-2.4)
[2021-01-09 10:02] LABS: CREATININE 0.9 mg/dL (0.55-1.3); PHOSPHOROUS 3.2 mg/dL (2.5-4.9)
[2021-01-09 10:03] LABS: BILIRUBIN,TOTAL 0.4 mg/dL (0.2-1)
[2021-01-09 10:04] LABS: TOT PROT 7.1 g/dl (6.4-8.2)
[2021-01-09] MEDS: NYSTATIN POWDER 100,000 UNITS/GM - 15 GM TOPICAL POWDER TP SCH ×2 (13:36→22:37)
[2021-01-09] MEDS ORDERED: PT OWN MED DRAWER 7, Y5N ONE (14:01)
[2021-01-09] MEDS: COLLAGENASE CLOSTRIDIUM HIST. 30 GRAMS TUBE TP SCH (15:07)
[2021-01-10] MEDS ORDERED: DEXTROSE 5%-WATER 100 ML IVPB ONE ×3 (02:07→15:30)
[2021-01-10] MEDS ORDERED: PIPERACILLIN/TAZOBACTAM 4.5 GM VIAL IVPB ONE ×3 (02:07→15:30)
[2021-01-10] MEDS: PIPERACILLIN/TAZOB 4.5 GM 4.5 GM in DEXTROSE 5%-WATER 100 ML IVPB SCH ×3 (02:21→17:24)
[2021-01-10 09:54] LABS: BASO % 0.5 % (0-2.0); EOS % 5.6 % (0-4.5); HEMATOCRIT 26.4 % (35.4-49); HEMOGLOBIN 8.6 GM/dL (11.7-16.9); LYMPH % 24.1 % (8-40); MCHC 32.4 g/dl (32.0-35.9); MEAN CELL VOLUME 80.2 fl (80-96); MEAN PLT VOLUME 7.4 fl (7.5-11.1); MONO % 6.1 % (3.8-10.2); NEUT % 63.7 % (42.8-82.8); PLATELET COUNT 370 K/MM3 (134-434); RBC 3.29 M/mm3 (4.00-5.60); RDW 15.3 % (11.9-15.9); WHITE BLOOD COUNT 8.3 K/mm3 (4.0-10.0)
[2021-01-10 10:17] LABS: ALBUMIN 2.4 g/dl (3.4-5.0); BLOOD UREA NITROGEN 19.3 mg/dL (7-18); CALCIUM 8.3 mg/dL (8.5-10.1)
[2021-01-10 10:21] LABS: BILIRUBIN,TOTAL 0.4 mg/dL (0.2-1); CREATININE 0.9 mg/dL (0.55-1.3); TOT PROT 6.9 g/dl (6.4-8.2)
[2021-01-10] MEDS: amLODIPine BESYLATE 10 MG TABLET (FP) PO SCH (10:53)
[2021-01-10] MEDS: GABAPENTIN 400 MG CAPSULE PO SCH ×2 (10:53→21:32)
[2021-01-10] MEDS: MULTIVITAMINS (DAILY MVI) TABLET (FP) PO SCH (10:53)
[2021-01-10] MEDS: ENOXAPARIN NA (PORCINE) 40 MG/0.4 ML DISP.SYRIN SQ SCH (10:53)
[2021-01-10] MEDS: NYSTATIN POWDER 100,000 UNITS/GM - 15 GM TOPICAL POWDER TP SCH ×2 (10:54→21:32)
[2021-01-10] MEDS: COLLAGENASE CLOSTRIDIUM HIST. 30 GRAMS TUBE TP SCH (10:54)
[2021-01-11] MEDS: PIPERACILLIN/TAZOB 4.5 GM 4.5 GM in DEXTROSE 5%-WATER 100 ML IVPB SCH ×2 (02:30→10:30)
[2021-01-11] MEDS ORDERED: PIPERACILLIN/TAZOBACTAM 4.5 GM VIAL IVPB ONE ×2 (03:11→10:20)
[2021-01-11] MEDS ORDERED: DEXTROSE 5%-WATER 100 ML IVPB ONE ×2 (03:11→10:20)
[2021-01-11] MEDS: ENOXAPARIN NA (PORCINE) 40 MG/0.4 ML DISP.SYRIN SQ SCH (10:29)
[2021-01-11] MEDS: MULTIVITAMINS (DAILY MVI) TABLET (FP) PO SCH (10:30)
[2021-01-11] MEDS: GABAPENTIN 400 MG CAPSULE PO SCH ×2 (10:30→22:11)
[2021-01-11] MEDS: amLODIPine BESYLATE 10 MG TABLET (FP) PO SCH (10:30)
[2021-01-11] MEDS: COLLAGENASE CLOSTRIDIUM HIST. 30 GRAMS TUBE TP SCH (13:55)
[2021-01-11] MEDS: NYSTATIN POWDER 100,000 UNITS/GM - 15 GM TOPICAL POWDER TP SCH ×2 (14:10→22:11)
[2021-01-12 09:20] LABS: HEMATOCRIT 27.5 % (35.4-49); MCH 26.1 pg (25.7-33.7); MCHC 32.6 g/dl (32.0-35.9); MEAN PLT VOLUME 7.1 fl (7.5-11.1); PLATELET COUNT 370 K/MM3 (134-434); RBC 3.44 M/mm3 (4.00-5.60); RDW 15.2 % (11.9-15.9); WHITE BLOOD COUNT 7.9 K/mm3 (4.0-10.0)
[2021-01-12 09:50] LABS: BLOOD UREA NITROGEN 20.4 mg/dL (7-18); CALCIUM 8.8 mg/dL (8.5-10.1); CREATININE 0.8 mg/dL (0.55-1.3); MAGNESIUM 2.5 mg/dL (1.8-2.4)
[2021-01-12] MEDS: GABAPENTIN 400 MG CAPSULE PO SCH ×2 (10:14→21:06)
[2021-01-12] MEDS: ENOXAPARIN NA (PORCINE) 40 MG/0.4 ML DISP.SYRIN SQ SCH (10:14)
[2021-01-12] MEDS: amLODIPine BESYLATE 10 MG TABLET (FP) PO SCH (10:14)
[2021-01-12] MEDS: MULTIVITAMINS (DAILY MVI) TABLET (FP) PO SCH (10:14)
[2021-01-12] MEDS: NYSTATIN POWDER 100,000 UNITS/GM - 15 GM TOPICAL POWDER TP SCH ×2 (10:15→21:07)
[2021-01-12] MEDS: COLLAGENASE CLOSTRIDIUM HIST. 30 GRAMS TUBE TP SCH ×2 (10:15→21:07)
[2021-01-13 09:08] LABS: HEMATOCRIT 27.4 % (35.4-49); HEMOGLOBIN 8.8 GM/dL (11.7-16.9); MCH 25.7 pg (25.7-33.7); MEAN CELL VOLUME 80.5 fl (80-96); MEAN PLT VOLUME 7.3 fl (7.5-11.1); PLATELET COUNT 382 K/MM3 (134-434); RBC 3.41 M/mm3 (4.00-5.60); RDW 15.8 % (11.9-15.9)
[2021-01-13 09:25] LABS: CALCIUM 8.5 mg/dL (8.5-10.1)
[2021-01-13 09:26] LABS: MAGNESIUM 2.3 mg/dL (1.8-2.4)
[2021-01-13 09:29] LABS: CREATININE 0.8 mg/dL (0.55-1.3)
[2021-01-13 09:31] LABS: BLOOD UREA NITROGEN 20.2 mg/dL (7-18)
[2021-01-13] MEDS: NYSTATIN POWDER 100,000 UNITS/GM - 15 GM TOPICAL POWDER TP SCH ×2 (10:06→21:00)
[2021-01-13] MEDS: amLODIPine BESYLATE 10 MG TABLET (FP) PO SCH (10:06)
[2021-01-13] MEDS: GABAPENTIN 400 MG CAPSULE PO SCH ×2 (10:06→21:00)
[2021-01-13] MEDS: ENOXAPARIN NA (PORCINE) 40 MG/0.4 ML DISP.SYRIN SQ SCH (10:06)
[2021-01-13] MEDS: MULTIVITAMINS (DAILY MVI) TABLET (FP) PO SCH (10:06)
[2021-01-13] MEDS: COLLAGENASE CLOSTRIDIUM HIST. 30 GRAMS TUBE TP SCH ×2 (10:06→21:01)
[2021-01-14] MEDS ORDERED: PT OWN MED DRAWER 7, Y5N ONE (10:32)
[2021-01-14] MEDS: amLODIPine BESYLATE 10 MG TABLET (FP) PO SCH (10:47)
[2021-01-14] MEDS: GABAPENTIN 400 MG CAPSULE PO SCH ×2 (10:47→23:00)
[2021-01-14] MEDS: MULTIVITAMINS (DAILY MVI) TABLET (FP) PO SCH (10:47)
[2021-01-14] MEDS: ENOXAPARIN NA (PORCINE) 40 MG/0.4 ML DISP.SYRIN SQ SCH (10:47)
[2021-01-14] MEDS: NYSTATIN POWDER 100,000 UNITS/GM - 15 GM TOPICAL POWDER TP SCH ×2 (11:39→23:00)
[2021-01-14] MEDS: COLLAGENASE CLOSTRIDIUM HIST. 30 GRAMS TUBE TP SCH ×2 (13:00→23:01)
[2021-01-15] MEDS: amLODIPine BESYLATE 10 MG TABLET (FP) PO SCH (10:28)
[2021-01-15] MEDS: MULTIVITAMINS (DAILY MVI) TABLET (FP) PO SCH (10:28)
[2021-01-15] MEDS: GABAPENTIN 400 MG CAPSULE PO SCH ×2 (10:28→21:02)
[2021-01-15] MEDS: ENOXAPARIN NA (PORCINE) 40 MG/0.4 ML DISP.SYRIN SQ SCH (10:28)
[2021-01-15] MEDS: COLLAGENASE CLOSTRIDIUM HIST. 30 GRAMS TUBE TP SCH (21:04)
[2021-01-15] MEDS: NYSTATIN POWDER 100,000 UNITS/GM - 15 GM TOPICAL POWDER TP SCH (22:04)
[2021-01-16 05:54] VITALS: TEMP 98
[2021-01-16] MEDS: ENOXAPARIN NA (PORCINE) 40 MG/0.4 ML DISP.SYRIN SQ SCH (10:07)
[2021-01-16] MEDS: GABAPENTIN 400 MG CAPSULE PO SCH (10:08)
[2021-01-16] MEDS: MULTIVITAMINS (DAILY MVI) TABLET (FP) PO SCH (10:08)
[2021-01-16] MEDS: amLODIPine BESYLATE 10 MG TABLET (FP) PO SCH (10:08)
[2021-01-16] MEDS: NYSTATIN POWDER 100,000 UNITS/GM - 15 GM TOPICAL POWDER TP SCH (10:09)
[2021-01-16] MEDS: COLLAGENASE CLOSTRIDIUM HIST. 30 GRAMS TUBE TP SCH (10:09)
[2021-01-16 10:57] VITALS: BP 147/67; PULSE 74
== END 2021-01-16 19:50 | DRG 580 ==
LOC: JER 12:56 → JERBED 15:15 → J6S 19:54 → UNDODISIN 01-13 21:00
PROVIDERS: ADMIT Internal Medicine; ATTEND Student in an Organized Health Care Education/Training Program
PROC: 0KBN0ZZ Excision of Right Hip Muscle, Open Approach (ICD-10-PCS; principal; 2021-01-07 14:30)
DX: L89.214 Pressure ulcer of right hip, stage 4 (principal); N39.0 Urinary tract infection, site not specified; T83.511A Infection and inflammatory reaction due to indwelling urethral catheter, initial encounter; G82.20 Paraplegia, unspecified; R78.81 Bacteremia; I10 Essential (primary) hypertension; Z85.46 Personal history of malignant neoplasm of prostate; Z95.0 Presence of cardiac pacemaker; D50.9 Iron deficiency anemia, unspecified; Y84.6 Urinary catheterization as the cause of abnormal reaction of the patient, or of later complication, without mention of misadventure at the time of the procedure; D63.8 Anemia in other chronic diseases classified elsewhere; N31.9 Neuromuscular dysfunction of bladder, unspecified; Z93.3 Colostomy status
CPT/HCPCS: 36415; 71045-TC-FY; 80048; 80053; 81003; 82272; 82728; 83550; 83735; 84100; 85025; 85027; 85610; 85730; 86850; 86900; 86901; 87040; 87070; 87086; 87186; 87205; 88304-TC; 93005; 93010; 94760; 97162-GP; 99285-25; A6212; C9803; G0463-25; G0480; U0003; U0005